=== PATIENT | female | born 1955 | race Caucasian/White ===

== ENCOUNTER → 2017-06-05 | Outpatient (CLI) | payer OTHER ==
[~2017-06-05] MED LIST: ARIP5TAB9 PO; ASPI81TA2 PO; BRIM15DR8 OU; DIVA500T35 PO; DOCU250C76 PO; FLUT1DIS3 IH; LEVO125 PO; LORA10TA7 PO; TIOT185 IH; XALA2.5OS OU
== END | disposition home or self-care (01) ==
LOC: RADPV 14:44
PROVIDERS: ATTEND Internal Medicine Critical Care Medicine
DX: J44.9 Chronic obstructive pulmonary disease, unspecified (principal)
CPT/HCPCS: 71020

== ENCOUNTER 2017-09-15 16:58 | Inpatient (IN) | payer MEDICARE, MEDICAID ==
[~2017-09-15] VITALS: Ht 152.4 cm; Wt 100.3 kg
[~2017-09-15 16:58] MED LIST changes: +ARIP5TAB8 PO; -ARIP5TAB9 PO; -ASPI81TA2 PO; +ASPI81TA39 PO; +DOCU250C14 PO; -DOCU250C76 PO
[2017-09-15] MEDS ORDERED: QUEtiapine FUMARATE 25 MG TABLET PO PRN (18:45)
[2017-09-15] MEDS ORDERED: LORazepam 1 MG TABLET PO PRN (18:45)
[2017-09-15 19:01] VITALS: BP 118/65
[2017-09-15 20:14] VITALS: BP 122/63
[2017-09-15] MEDS: CloNIDine HCL 0.1 MG TABLET PO SCH (20:15)
[2017-09-15] MEDS: QUEtiapine FUMARATE 100 MG TABLET PO SCH (20:15)
[2017-09-15] MEDS ORDERED: INSULIN ASPART 100 UNITS/ML SQ PRN (21:15)
[2017-09-15] MEDS ORDERED: IPRATROPIUM BROMIDE 0.5 MG/2.5 ML NEB SOLUTION NEB PRN (21:15)
[2017-09-15] MEDS ORDERED: ALBUTEROL SULFATE HFA 90 MCG/PUFF 8 GM INHALER IH PRN (21:15)
[2017-09-15] MEDS ORDERED: DENTURE ADHESIVE 68 GM CREAM DT PRN (21:15)
[2017-09-15] MEDS ORDERED: GLUCAGON,HUMAN RECOMBINANT 1 MG VIAL IM PRN (21:15)
[2017-09-15] MEDS ORDERED: -PHARMACY VACCINE NOTE- MISC ONE ×2 (22:15)
[2017-09-16 00:11] LABS: GLUCOSE,POINT OF CARE 139 MG/DL (70-110)
[2017-09-16 01:55] VITALS: BP 122/68
[2017-09-16] MEDS: ZOLPIDEM TARTRATE 5 MG TABLET PO PRN (02:07)
[2017-09-16 06:03] LABS: GLUCOSE,POINT OF CARE 80 MG/DL (70-110)
[2017-09-16] MEDS: LEVOTHYROXINE SODIUM 137 MCG TABLET PO SCH (06:35)
[2017-09-16 07:54] LABS: BASOPHILS % (AUTO) 0.3 % (0.0-2.0); EOSINOPHILS % (AUTO) 1.1 % (1.0-6.0); HEMATOCRIT 38.6 % (36-46); LYMPHOCYTES # (AUTO) 2.3 K/uL (1.0-4.8); LYMPHOCYTES % (AUTO) 38.6 % (22.0-44.0); MEAN CORPUSCULAR HEMOGLOBIN 32.1 pg (26.0-34.0); MEAN CORPUSCULAR HGB CONC 33.6 G/dL (31.0-37.0); MEAN CORPUSCULAR VOLUME 95 fL (80-100); MONOCYTES # (AUTO) 0.5 K/uL (0.1-1.0); NEUTROPHILS # (AUTO) 3.1 K/uL (1.8-7.7); PLATELET COUNT (AUTO) 285 K/uL (150-450); RED BLOOD CELL COUNT(AUTO) 4.05 MIL/uL (4.00-5.20); RED CELL DISTRIBUTION WIDTH 14.8 % (11.5-14.5)
[2017-09-16 08:03] VITALS: BP 117/58
[2017-09-16 08:04] LABS: HEMOGLOBIN A1C 5.8 % (4.5-6.2)
[2017-09-16 08:10] VITALS: BP 118/62
[2017-09-16] MEDS: FLUTICASONE/VILANTEROL 100-25 MCG/INH INHALER [14] IH SCH (08:11)
[2017-09-16] MEDS: CloNIDine HCL 0.1 MG TABLET PO SCH ×2 (08:12→20:36)
[2017-09-16] MEDS: FLUTICASONE PROPIONATE 50 MCG/SPRAY 16 GM NASAL SPRAY NASAL SCH ×2 (08:12→16:44)
[2017-09-16] MEDS: ASPIRIN 81 MG CHEWABLE TABLET PO SCH (08:13)
[2017-09-16] MEDS: DOCUSATE SODIUM 250 MG CAPSULE PO SCH ×2 (08:13→16:45)
[2017-09-16] MEDS: QUEtiapine FUMARATE 25 MG TABLET PO SCH ×2 (08:13→16:45)
[2017-09-16] MEDS: LOSARTAN POTASSIUM 25 MG TABLET PO SCH (08:13)
[2017-09-16 08:30] LABS: ALANINE AMINOTRANSFERASE 18 U/L (12-78); ALBUMIN 3.3 g/dL (3.4-5.0); ANION GAP 3 mmol/L (8-16); ASPARTATE AMINOTRANSFERASE 15 U/L (15-37); BILIRUBIN,TOTAL 0.3 mg/dL (0.1-1.0); CALCIUM, TOTAL 9.4 mg/dL (8.8-10.5); CARBON DIOXIDE 33 mmol/L (22-29); CHLORIDE 99 mmol/L (98-107); CHOL/HDL RATIO 2.8 (3.9-5.7); CREATININE 0.89 mg/dL (0.60-1.30); GLOMERULAR FILTR. RATE CALC > 60 mL/min (>60); SODIUM SERUM 135 mmol/L (136-145); THYROID STIMULATING HORMONE 24.15 uIU/mL (0.36-3.74); TOTAL PROTEIN, SERUM 7.1 g/dL (6.4-8.2); UREA NITROGEN, BLOOD 13 mg/dL (7-18)
[2017-09-16] MEDS: TIOTROPIUM BROMIDE 18 MCG/INH HANDIHALER [5] IH SCH (11:22)
[2017-09-16] MEDS: BRIMONIDINE TARTRATE 0.2% 5 ML OPHTHALMIC SOLUTION OU SCH ×3 (11:22→16:45)
[2017-09-16 16:00] VITALS: BP 115/62
[2017-09-16 20:33] VITALS: BP 115/61
[2017-09-16] MEDS: LATANOPROST 0.005% 2.5 ML OPHTHALMIC SOLUTION OU SCH (20:35)
[2017-09-16] MEDS: OXcarbazepine 300 MG TABLET PO SCH (20:36)
[2017-09-16] MEDS: QUEtiapine FUMARATE 100 MG TABLET PO SCH (20:36)
[2017-09-17] MEDS ORDERED: ACETAMINOPHEN 325 MG TABLET PO PRN (01:45)
[2017-09-17] MEDS: ZOLPIDEM TARTRATE 5 MG TABLET PO PRN (02:08)
[2017-09-17] MEDS: IBUPROFEN 600 MG TABLET PO PRN ×2 (02:08→18:57)
[2017-09-17 02:33] VITALS: BP 107/61
[2017-09-17 06:18] LABS: GLUCOSE,POINT OF CARE 88 MG/DL (70-110)
[2017-09-17] MEDS: LEVOTHYROXINE SODIUM 137 MCG TABLET PO SCH (06:42)
[2017-09-17 08:15] VITALS: BP 116/64
[2017-09-17] MEDS: LOSARTAN POTASSIUM 25 MG TABLET PO SCH (08:26)
[2017-09-17] MEDS: CloNIDine HCL 0.1 MG TABLET PO SCH ×2 (08:26→20:28)
[2017-09-17] MEDS: ASPIRIN 81 MG CHEWABLE TABLET PO SCH (08:26)
[2017-09-17] MEDS: QUEtiapine FUMARATE 25 MG TABLET PO SCH ×2 (08:27→16:40)
[2017-09-17] MEDS: FLUTICASONE PROPIONATE 50 MCG/SPRAY 16 GM NASAL SPRAY NASAL SCH (08:28)
[2017-09-17] MEDS: FLUTICASONE/VILANTEROL 100-25 MCG/INH INHALER [14] IH SCH (08:28)
[2017-09-17] MEDS: TIOTROPIUM BROMIDE 18 MCG/INH HANDIHALER [5] IH SCH (08:28)
[2017-09-17] MEDS: BRIMONIDINE TARTRATE 0.2% 5 ML OPHTHALMIC SOLUTION OU SCH ×3 (08:29→16:41)
[2017-09-17] MEDS: DOCUSATE SODIUM 250 MG CAPSULE PO SCH (08:41)
[2017-09-17 16:10] VITALS: BP 116/74
[2017-09-17 18:51] VITALS: BP 117/74
[2017-09-17 20:27] VITALS: BP 114/64
[2017-09-17] MEDS: QUEtiapine FUMARATE 100 MG TABLET PO SCH (20:28)
[2017-09-17] MEDS: OXcarbazepine 300 MG TABLET PO SCH (20:28)
[2017-09-17] MEDS: LATANOPROST 0.005% 2.5 ML OPHTHALMIC SOLUTION OU SCH (20:28)
[2017-09-18] MEDS: ZOLPIDEM TARTRATE 5 MG TABLET PO PRN (00:54)
[2017-09-18] MEDS: IBUPROFEN 600 MG TABLET PO PRN ×2 (00:55→21:22)
[2017-09-18 01:45] VITALS: BP 119/64
[2017-09-18] MEDS: LEVOTHYROXINE SODIUM 137 MCG TABLET PO SCH (06:40)
[2017-09-18 06:44] LABS: GLUCOSE,POINT OF CARE 71 MG/DL (70-110)
[2017-09-18] MEDS: DOCUSATE SODIUM 250 MG CAPSULE PO SCH ×2 (08:21→08:54)
[2017-09-18] MEDS: ASPIRIN 81 MG CHEWABLE TABLET PO SCH (08:23)
[2017-09-18] MEDS: LOSARTAN POTASSIUM 25 MG TABLET PO SCH (08:23)
[2017-09-18] MEDS: CloNIDine HCL 0.1 MG TABLET PO SCH ×2 (08:24→20:25)
[2017-09-18] MEDS: QUEtiapine FUMARATE 25 MG TABLET PO SCH ×2 (08:24→17:04)
[2017-09-18] MEDS: TIOTROPIUM BROMIDE 18 MCG/INH HANDIHALER [5] IH SCH (08:25)
[2017-09-18] MEDS: FLUTICASONE/VILANTEROL 100-25 MCG/INH INHALER [14] IH SCH (08:25)
[2017-09-18] MEDS: BRIMONIDINE TARTRATE 0.2% 5 ML OPHTHALMIC SOLUTION OU SCH ×3 (08:26→17:04)
[2017-09-18] MEDS: FLUTICASONE PROPIONATE 50 MCG/SPRAY 16 GM NASAL SPRAY NASAL SCH (08:26)
[2017-09-18 08:32] VITALS: BP 122/83
[2017-09-18 16:16] VITALS: BP 123/66
[2017-09-18] MEDS: OXcarbazepine 300 MG TABLET PO SCH (20:11)
[2017-09-18] MEDS: QUEtiapine FUMARATE 100 MG TABLET PO SCH (20:11)
[2017-09-18] MEDS: LATANOPROST 0.005% 2.5 ML OPHTHALMIC SOLUTION OU SCH (20:13)
[2017-09-18 20:25] VITALS: BP 108/53
[2017-09-19 06:05] VITALS: BP 115/65
[2017-09-19 06:44] LABS: GLUCOSE,POINT OF CARE 85 MG/DL (70-110)
[2017-09-19] MEDS: LEVOTHYROXINE SODIUM 137 MCG TABLET PO SCH (07:06)
[2017-09-19 09:10] VITALS: BP 105/70
[2017-09-19 09:11] VITALS: BP 118/62
[2017-09-19] MEDS: LOSARTAN POTASSIUM 25 MG TABLET PO SCH (09:11)
[2017-09-19] MEDS: QUEtiapine FUMARATE 25 MG TABLET PO SCH ×2 (09:11→16:59)
[2017-09-19] MEDS: ASPIRIN 81 MG CHEWABLE TABLET PO SCH (09:11)
[2017-09-19] MEDS: DOCUSATE SODIUM 250 MG CAPSULE PO SCH (09:11)
[2017-09-19] MEDS: CloNIDine HCL 0.1 MG TABLET PO SCH ×2 (09:11→21:11)
[2017-09-19] MEDS: FLUTICASONE/VILANTEROL 100-25 MCG/INH INHALER [14] IH SCH (09:12)
[2017-09-19] MEDS: FLUTICASONE PROPIONATE 50 MCG/SPRAY 16 GM NASAL SPRAY NASAL SCH (09:12)
[2017-09-19] MEDS: BRIMONIDINE TARTRATE 0.2% 5 ML OPHTHALMIC SOLUTION OU SCH ×3 (09:13→17:13)
[2017-09-19] MEDS: TIOTROPIUM BROMIDE 18 MCG/INH HANDIHALER [5] IH SCH (09:13)
[2017-09-19 16:12] VITALS: BP 108/80
[2017-09-19] MEDS: OXcarbazepine 300 MG TABLET PO SCH (21:10)
[2017-09-19] MEDS: LATANOPROST 0.005% 2.5 ML OPHTHALMIC SOLUTION OU SCH (21:10)
[2017-09-19] MEDS: QUEtiapine FUMARATE 100 MG TABLET PO SCH (21:11)
[2017-09-20 02:54] VITALS: BP 101/60
[2017-09-20] MEDS: LEVOTHYROXINE SODIUM 137 MCG TABLET PO SCH (06:42)
[2017-09-20 06:48] LABS: GLUCOSE COMMENT 1 Repeated; GLUCOSE,POINT OF CARE 84 MG/DL (70-110)
[2017-09-20 08:34] VITALS: BP 119/66
[2017-09-20] MEDS: ASPIRIN 81 MG CHEWABLE TABLET PO SCH (09:34)
[2017-09-20] MEDS: CloNIDine HCL 0.1 MG TABLET PO SCH ×2 (09:35→20:41)
[2017-09-20] MEDS: LOSARTAN POTASSIUM 25 MG TABLET PO SCH (09:35)
[2017-09-20] MEDS: DOCUSATE SODIUM 250 MG CAPSULE PO SCH (09:35)
[2017-09-20] MEDS: TIOTROPIUM BROMIDE 18 MCG/INH HANDIHALER [5] IH SCH (09:36)
[2017-09-20] MEDS: FLUTICASONE/VILANTEROL 100-25 MCG/INH INHALER [14] IH SCH (09:36)
[2017-09-20] MEDS: FLUTICASONE PROPIONATE 50 MCG/SPRAY 16 GM NASAL SPRAY NASAL SCH (09:37)
[2017-09-20] MEDS: BRIMONIDINE TARTRATE 0.2% 5 ML OPHTHALMIC SOLUTION OU SCH ×3 (09:39→16:49)
[2017-09-20] MEDS: QUEtiapine FUMARATE 25 MG TABLET PO SCH ×2 (09:42→16:49)
[2017-09-20 16:14] VITALS: BP 118/65
[2017-09-20] MEDS: QUEtiapine FUMARATE 100 MG TABLET PO SCH (20:41)
[2017-09-20] MEDS: LATANOPROST 0.005% 2.5 ML OPHTHALMIC SOLUTION OU SCH (20:41)
[2017-09-20] MEDS: OXcarbazepine 300 MG TABLET PO SCH (20:41)
[2017-09-20] MEDS: ZOLPIDEM TARTRATE 5 MG TABLET PO PRN (22:33)
[2017-09-21 01:22] VITALS: BP 105/60
[2017-09-21] MEDS: LEVOTHYROXINE SODIUM 137 MCG TABLET PO SCH (06:26)
[2017-09-21] MEDS: IBUPROFEN 600 MG TABLET PO PRN (06:40)
[2017-09-21 07:03] LABS: GLUCOSE,POINT OF CARE 86 MG/DL (70-110)
[2017-09-21] MEDS ORDERED: CLON-570 PO (08:22)
[2017-09-21] MEDS ORDERED: QUET100T PO (08:22)
[2017-09-21] MEDS ORDERED: OXCA300T46 PO (08:22)
[2017-09-21] MEDS ORDERED: FLUT1AER IH (08:22)
[2017-09-21] MEDS ORDERED: BRIM15OS OU (08:22)
[2017-09-21] MEDS ORDERED: FLUT16H NASAL (08:22)
[2017-09-21] MEDS ORDERED: ALBU8HFA4 IH (08:22)
[2017-09-21] MEDS ORDERED: LOSA25TA2 PO (08:22)
[2017-09-21 08:34] VITALS: BP 125/68
[2017-09-21] MEDS: CloNIDine HCL 0.1 MG TABLET PO SCH ×2 (08:35→20:40)
[2017-09-21] MEDS: LOSARTAN POTASSIUM 25 MG TABLET PO SCH (08:35)
[2017-09-21] MEDS ORDERED: XALA2.5OS OU (08:35)
[2017-09-21] MEDS: ASPIRIN 81 MG CHEWABLE TABLET PO SCH (08:36)
[2017-09-21] MEDS: DOCUSATE SODIUM 250 MG CAPSULE PO SCH (08:36)
[2017-09-21] MEDS: QUEtiapine FUMARATE 25 MG TABLET PO SCH ×2 (08:36→16:38)
[2017-09-21] MEDS: FLUTICASONE PROPIONATE 50 MCG/SPRAY 16 GM NASAL SPRAY NASAL SCH (08:37)
[2017-09-21] MEDS: FLUTICASONE/VILANTEROL 100-25 MCG/INH INHALER [14] IH SCH (08:37)
[2017-09-21] MEDS: BRIMONIDINE TARTRATE 0.2% 5 ML OPHTHALMIC SOLUTION OU SCH ×3 (08:39→16:38)
[2017-09-21] MEDS ORDERED: LEVO137T24 PO (12:48)
[2017-09-21] MEDS: TIOTROPIUM BROMIDE 18 MCG/INH HANDIHALER [5] IH SCH (12:52)
[2017-09-21] MEDS ORDERED: QUET25TA PO (15:05)
[2017-09-21] MEDS ORDERED: OXCA150T3 PO (15:05)
[2017-09-21] MEDS ORDERED: QUET50TA PO ×2 (15:05→15:13)
[2017-09-21 16:18] VITALS: BP 124/78
[2017-09-21] MEDS: LATANOPROST 0.005% 2.5 ML OPHTHALMIC SOLUTION OU SCH (20:39)
[2017-09-21] MEDS: QUEtiapine FUMARATE 100 MG TABLET PO SCH (20:39)
[2017-09-21 20:40] VITALS: BP 122/71
[2017-09-21] MEDS ORDERED: OXcarbazepine 300 MG TABLET PO SCH (21:00)
[2017-09-22 06:14] VITALS: BP 118/63
[2017-09-22 06:33] LABS: GLUCOSE,POINT OF CARE 104 MG/DL (70-110)
[2017-09-22] MEDS: LEVOTHYROXINE SODIUM 137 MCG TABLET PO SCH (06:43)
[2017-09-22 08:36] VITALS: BP 148/60
[2017-09-22] MEDS: CloNIDine HCL 0.1 MG TABLET PO SCH (08:36)
[2017-09-22] MEDS: QUEtiapine FUMARATE 25 MG TABLET PO SCH (08:36)
[2017-09-22] MEDS: DOCUSATE SODIUM 250 MG CAPSULE PO SCH (08:36)
[2017-09-22] MEDS: ASPIRIN 81 MG CHEWABLE TABLET PO SCH (08:37)
[2017-09-22] MEDS: TIOTROPIUM BROMIDE 18 MCG/INH HANDIHALER [5] IH SCH (08:37)
[2017-09-22] MEDS: FLUTICASONE PROPIONATE 50 MCG/SPRAY 16 GM NASAL SPRAY NASAL SCH (08:37)
[2017-09-22] MEDS: LOSARTAN POTASSIUM 25 MG TABLET PO SCH (08:37)
[2017-09-22] MEDS: FLUTICASONE/VILANTEROL 100-25 MCG/INH INHALER [14] IH SCH (08:38)
[2017-09-22] MEDS: BRIMONIDINE TARTRATE 0.2% 5 ML OPHTHALMIC SOLUTION OU SCH (08:38)
[2017-10-30] MEDS ORDERED: DONE10TA8 PO (10:50)
== END 2017-09-22 12:17 | disposition home or self-care (01) | DRG 885 ==
LOC: B2X 18:39
PROVIDERS: ADMIT Psychiatry & Neurology Psychiatry; ATTEND Psychiatry & Neurology Psychiatry
DX: F20.0 Paranoid schizophrenia (principal); E11.9 Type 2 diabetes mellitus without complications; R45.851 Suicidal ideations; W19.XXXA Unspecified fall, initial encounter; E03.9 Hypothyroidism, unspecified; E78.5 Hyperlipidemia, unspecified; F17.200 Nicotine dependence, unspecified, uncomplicated; I10 Essential (primary) hypertension; J30.9 Allergic rhinitis, unspecified; J44.9 Chronic obstructive pulmonary disease, unspecified; K59.00 Constipation, unspecified; Z79.4 Long term (current) use of insulin; Z91.19 Patient's noncompliance with other medical treatment and regimen; Z96.651 Presence of right artificial knee joint
CPT/HCPCS: 82962; 83036; 84439; 84443

== ENCOUNTER 2018-02-02 19:26 | Emergency (ER) | payer OTHER ==
[~2018-02-02] VITALS: Ht 162.6 cm; Wt 77.3 kg
[~2018-02-02 19:26] MED LIST changes: +ALBU8HFA4 IH; -ARIP5TAB8 PO; -BRIM15DR8 OU; +BRIM15OS OU; +CLON-570 PO; -DIVA500T35 PO; +DONE10TA8 PO; +FLUT16H NASAL; +FLUT1AER IH; -FLUT1DIS3 IH; -LEVO125 PO; +LEVO137T24 PO; -LORA10TA7 PO; +LOSA25TA2 PO; +OXCA150T3 PO; +QUET25TA PO; +QUET50TA PO
[2018-02-02] MEDS ORDERED: METOCLOPRAMIDE HCL 5 MG/ML 2 ML VIAL IVP ONE (22:15)
[2018-02-02] MEDS ORDERED: FentaNYL CITRATE-PF 100 MCG/2 ML VIAL IVP ONE (22:15)
[2018-02-02 22:25] LABS: EOSINOPHILS % (AUTO) 1.1 % (1.0-6.0); HEMATOCRIT 34.5 % (36-46); HEMOGLOBIN 11.6 g/dL (12.0-16.0); LYMPHOCYTES # (AUTO) 2.3 K/uL (1.0-4.8); LYMPHOCYTES % (AUTO) 23.2 % (22.0-44.0); MEAN CORPUSCULAR HEMOGLOBIN 28.9 pg (26.0-34.0); MEAN CORPUSCULAR HGB CONC 33.5 G/dL (31.0-37.0); MEAN CORPUSCULAR VOLUME 86 fL (80-100); MONOCYTES # (AUTO) 0.7 K/uL (0.1-1.0); MONOCYTES % (AUTO) 6.7 % (2.0-9.0); NEUTROPHILS # (AUTO) 6.7 K/uL (1.8-7.7); PLATELET COUNT (AUTO) 329 K/uL (150-450); RED CELL DISTRIBUTION WIDTH 15.3 % (11.5-14.5)
[2018-02-02 22:35] LABS: CALCIUM, TOTAL 9.3 mg/dL (8.8-10.5); CREATININE 0.98 mg/dL (0.60-1.30); POTASSIUM 4.4 mmol/L (3.5-5.1)
[2018-02-02 22:36] LABS: PROTHROMBIN TIME 10.2 SEC (9.4-11.6)
[2018-02-02 22:41] LABS: ALBUMIN 3.4 g/dL (3.4-5.0); BILIRUBIN,TOTAL 0.2 mg/dL (0.1-1.0); TOTAL PROTEIN, SERUM 7.1 g/dL (6.4-8.2)
[2018-02-03 00:31] VITALS: BP 131/74
[2018-02-05] MEDS ORDERED: RISP.5 PO (08:49)
[2018-02-05] MEDS ORDERED: RISP0.5T61 PO (08:49)
== END 2018-02-03 02:09 | disposition home or self-care (01) ==
LOC: EMS 19:28
DX: S13.4XXA Sprain of ligaments of cervical spine, initial encounter (principal); S00.03XA Contusion of scalp, initial encounter; F20.0 Paranoid schizophrenia; R45.851 Suicidal ideations; E03.9 Hypothyroidism, unspecified; J44.9 Chronic obstructive pulmonary disease, unspecified; F17.210 Nicotine dependence, cigarettes, uncomplicated; W18.39XA Other fall on same level, initial encounter; Y93.89 Activity, other specified; Y92.89 Other specified places as the place of occurrence of the external cause; Y99.8 Other external cause status
CPT/HCPCS: 36415; 70450; 72070; 72100; 72125; 80053; 85025; 85610; 85730; 96374; 96375; 99285; J2765; J3010

== ENCOUNTER 2018-07-02 17:33 | Inpatient (IN) | payer MEDICARE, MEDICAID ==
[~2018-07-02] VITALS: Ht 160 cm; Wt 90.3 kg
[~2018-07-02 17:33] MED LIST changes: -ALBU8HFA4 IH; -BRIM15OS OU; -CLON-570 PO; -DONE10TA8 PO; -FLUT16H NASAL; -FLUT1AER IH; -OXCA150T3 PO; -QUET25TA PO; -QUET50TA PO; +RISP.5 PO; +RISP0.5T61 PO; -TIOT185 IH; -XALA2.5OS OU
[2018-07-02 18:01] LABS: EOSINOPHILS % (AUTO) 0.7 % (1.0-6.0); HEMATOCRIT 38.5 % (36-46); HEMOGLOBIN 12.8 g/dL (12.0-16.0); LYMPHOCYTES % (AUTO) 24.5 % (22.0-44.0); MEAN CORPUSCULAR HEMOGLOBIN 29.6 pg (26.0-34.0); MEAN CORPUSCULAR HGB CONC 33.3 G/dL (31.0-37.0); MEAN CORPUSCULAR VOLUME 89 fL (80-100); MONOCYTES # (AUTO) 0.5 K/uL (0.1-1.0); MONOCYTES % (AUTO) 6.5 % (2.0-9.0); NEUTROPHILS # (AUTO) 5.4 K/uL (1.8-7.7); NEUTROPHILS % (AUTO) 67.3 % (40.0-70.0); PLATELET COUNT (AUTO) 328 K/uL (150-450); RED BLOOD CELL COUNT(AUTO) 4.34 MIL/uL (4.00-5.20); RED CELL DISTRIBUTION WIDTH 15.7 % (11.5-14.5)
[2018-07-02 18:08] LABS: ANION GAP 6 mmol/L (8-16); CALCIUM, TOTAL 9.6 mg/dL (8.8-10.5); CARBON DIOXIDE 30 mmol/L (22-29); CHLORIDE 102 mmol/L (98-107); CREATININE 0.98 mg/dL (0.60-1.30); GLOMERULAR FILTR. RATE CALC 58 mL/min (>60); GLUCOSE,RANDOM 100 mg/dL (70-110); POTASSIUM 4.9 mmol/L (3.5-5.1); SODIUM SERUM 138 mmol/L (136-145); UREA NITROGEN, BLOOD 22 mg/dL (7-18)
[2018-07-02 18:15] LABS: ALANINE AMINOTRANSFERASE 21 U/L (12-78); ALBUMIN 3.8 g/dL (3.4-5.0); ALKALINE PHOSPHATASE 82 U/L (46-116); ASPARTATE AMINOTRANSFERASE 15 U/L (15-37); BILIRUBIN,TOTAL 0.3 mg/dL (0.1-1.0); TOTAL PROTEIN, SERUM 7.8 g/dL (6.4-8.2)
[2018-07-02 19:33] LABS: AMPHET/METH SCREEN,URINE NEGATIVE (NEGATIVE); BARBITURATE SCREEN, URINE NEGATIVE (NEGATIVE); BENZODIAZEPINES SCREEN,URINE NEGATIVE (NEGATIVE); CANNABINOID SCREEN,URINE NEGATIVE (NEGATIVE); COCAINE SCREEN,URINE NEGATIVE (NEGATIVE); METHADONE SCREEN, URINE NEGATIVE (NEGATIVE); OPIATE SCREEN,URINE NEGATIVE (NEGATIVE)
[2018-07-02 19:34] LABS: PHENCYCLIDINE SCREEN,URINE NEGATIVE (NEGATIVE)
[2018-07-02] MEDS ORDERED: ChlorproMAZINE HCL 25 MG TABLET PO PRN ×2 (21:00→21:45)
[2018-07-02 21:42] LABS: APPEARANCE,URINE CLEAR (CLEAR); BILIRUBIN,URINE NEGATIVE (NEGATIVE); GLUCOSE, URINE (UA) NEGATIVE (NEGATIVE); KETONES,URINE NEGATIVE (NEGATIVE); LEUKOCYTE ESTERASE ,URINE NEGATIVE (NEGATIVE); NITRATE,URINE NEGATIVE (NEGATIVE); OCCULT BLOOD,URINE NEGATIVE (NEGATIVE); PROTEIN,URINE NEGATIVE (NEGATIVE); UROBILINOGEN,URINE 0.2 mg/dL (<=1.0)
[2018-07-02] MEDS: ZOLPIDEM TARTRATE 5 MG TABLET PO PRN (23:52)
[2018-07-02] MEDS: LORazepam 1 MG TABLET PO PRN (23:53)
[2018-07-03 00:18] VITALS: BP 126/59
[2018-07-03 05:49] LABS: GLUCOMETER DEV NAME(LOC) 3EI C; GLUCOSE,POINT OF CARE 88 MG/DL (70-110)
[2018-07-03 06:54] LABS: BASOPHILS % (AUTO) 1.1 % (0.0-2.0); EOSINOPHILS % (AUTO) 1.1 % (1.0-6.0); HEMATOCRIT 39.5 % (36-46); HEMOGLOBIN 13.3 g/dL (12.0-16.0); LYMPHOCYTES # (AUTO) 3.1 K/uL (1.0-4.8); LYMPHOCYTES % (AUTO) 32.3 % (22.0-44.0); MEAN CORPUSCULAR HEMOGLOBIN 29.8 pg (26.0-34.0); MEAN CORPUSCULAR HGB CONC 33.8 G/dL (31.0-37.0); MEAN CORPUSCULAR VOLUME 88 fL (80-100); MONOCYTES # (AUTO) 0.6 K/uL (0.1-1.0); MONOCYTES % (AUTO) 6.5 % (2.0-9.0); NEUTROPHILS # (AUTO) 5.7 K/uL (1.8-7.7); PLATELET COUNT (AUTO) 351 K/uL (150-450); RED BLOOD CELL COUNT(AUTO) 4.48 MIL/uL (4.00-5.20); RED CELL DISTRIBUTION WIDTH 15.6 % (11.5-14.5)
[2018-07-03 07:06] LABS: HEMOGLOBIN A1C 5.7 % (4.5-6.2)
[2018-07-03 07:41] LABS: ALBUMIN 3.8 g/dL (3.4-5.0); BILIRUBIN,TOTAL 0.5 mg/dL (0.1-1.0); CHOL/HDL RATIO 2.7 (3.9-5.7); CREATININE 0.97 mg/dL (0.60-1.30); FREE T4 (FREE THYROXINE) 0.83 ng/dL (0.76-1.46); POTASSIUM 4.2 mmol/L (3.5-5.1); THYROID STIMULATING HORMONE 9.32 uIU/mL (0.36-3.74); TOTAL PROTEIN, SERUM 7.9 g/dL (6.4-8.2)
[2018-07-03 08:05] VITALS: BP 126/75
[2018-07-03] MEDS: OXcarbazepine 300 MG TABLET PO SCH ×2 (08:10→17:53)
[2018-07-03] MEDS: HALOPERIDOL 5 MG TABLET PO SCH ×2 (08:10→17:53)
[2018-07-03] MEDS: ChlorproMAZINE HCL 100 MG TABLET PO PRN (13:12)
[2018-07-03 18:00] VITALS: BP 122/69
[2018-07-04] MEDS: OXcarbazepine 300 MG TABLET PO SCH ×2 (08:25→17:52)
[2018-07-04] MEDS: HALOPERIDOL 5 MG TABLET PO SCH ×2 (08:25→17:53)
[2018-07-04 08:55] VITALS: BP 150/59
[2018-07-04] MEDS: LORazepam 1 MG TABLET PO PRN (14:14)
[2018-07-04 16:18] VITALS: BP 141/65
[2018-07-05] MEDS: ChlorproMAZINE HCL 100 MG TABLET PO PRN ×3 (02:07→23:46)
[2018-07-05 02:11] VITALS: BP 139/58
[2018-07-05 08:10] VITALS: BP 108/69
[2018-07-05] MEDS: OXcarbazepine 300 MG TABLET PO SCH ×2 (08:18→18:32)
[2018-07-05] MEDS: HALOPERIDOL 5 MG TABLET PO SCH ×2 (08:18→18:32)
[2018-07-05] MEDS: LOSARTAN POTASSIUM 25 MG TABLET PO SCH (14:10)
[2018-07-05 16:30] VITALS: BP 135/72
[2018-07-06 00:12] VITALS: BP 103/53
[2018-07-06] MEDS: ChlorproMAZINE HCL 100 MG TABLET PO PRN ×2 (06:05→15:00)
[2018-07-06 06:48] LABS: HEMOGLOBIN A1C 5.7 % (4.5-6.2)
[2018-07-06] MEDS ORDERED: LEVOTHYROXINE SODIUM 137 MCG TABLET PO SCH (07:00)
[2018-07-06 07:11] LABS: FREE T4 (FREE THYROXINE) 0.73 ng/dL (0.76-1.46); THYROID STIMULATING HORMONE 16.78 uIU/mL (0.36-3.74)
[2018-07-06 09:00] VITALS: BP 152/58
[2018-07-06] MEDS ORDERED: [UNRECOGNIZED DRUG - OTHER] PO SCH (09:00)
[2018-07-06] MEDS ORDERED: MISC MED-CONVERTED FROM AMBULATORY (Aspirin 81 MG) PO SCH (09:00)
[2018-07-06] MEDS ORDERED: [UNRECOGNIZED DRUG - OTHER] PO SCH (09:00)
[2018-07-06] MEDS: OXcarbazepine 300 MG TABLET PO SCH ×2 (09:39→17:10)
[2018-07-06] MEDS: DOCUSATE SODIUM 250 MG CAPSULE PO SCH (09:39)
[2018-07-06] MEDS: LOSARTAN POTASSIUM 25 MG TABLET PO SCH (09:39)
[2018-07-06] MEDS: ASPIRIN 81 MG EC TABLET PO SCH (09:39)
[2018-07-06] MEDS: HALOPERIDOL 5 MG TABLET PO SCH ×2 (09:39→17:10)
[2018-07-06 17:00] VITALS: BP 105/57
[2018-07-07] MEDS: ChlorproMAZINE HCL 100 MG TABLET PO PRN ×2 (01:40→22:56)
[2018-07-07 01:44] VITALS: BP 103/52
[2018-07-07] MEDS: LEVOTHYROXINE SODIUM 150 MCG TABLET PO SCH (06:44)
[2018-07-07] MEDS: HALOPERIDOL 5 MG TABLET PO SCH ×2 (08:45→16:20)
[2018-07-07] MEDS: DOCUSATE SODIUM 250 MG CAPSULE PO SCH (08:45)
[2018-07-07] MEDS: ASPIRIN 81 MG EC TABLET PO SCH (08:47)
[2018-07-07] MEDS: LOSARTAN POTASSIUM 25 MG TABLET PO SCH (08:47)
[2018-07-07] MEDS ORDERED: GuaiFENesin/D-METHORPHAN [SUGAR-FREE] 200-20MG/10 ML SYRUP UDCUP PO PRN (11:45)
[2018-07-07] MEDS ORDERED: LOPERAMIDE HCL 2 MG CAPSULE PO PRN (11:45)
[2018-07-07] MEDS ORDERED: PROMETHAZINE HCL 25 MG TABLET PO PRN (11:45)
[2018-07-07] MEDS ORDERED: MAG HYDROX/AL HYDROX/SIMETH ES 30 ML SUSPENSION UDCUP PO PRN (11:45)
[2018-07-07] MEDS ORDERED: ACETAMINOPHEN 325 MG TABLET PO PRN (11:45)
[2018-07-07] MEDS ORDERED: MAGNESIUM HYDROXIDE SUSPENSION 30 ML UDCUP PO PRN (11:45)
[2018-07-07 14:52] VITALS: BP 132/77
[2018-07-07 16:15] VITALS: BP 134/64
[2018-07-07] MEDS: OXcarbazepine 300 MG TABLET PO SCH (16:19)
[2018-07-07] MEDS: LORazepam 1 MG TABLET PO PRN (16:19)
[2018-07-07] MEDS: THIAMINE HCL 100 MG TABLET PO SCH (16:20)
[2018-07-07] MEDS: ZOLPIDEM TARTRATE 5 MG TABLET PO PRN (22:02)
[2018-07-08] VITALS: BP 115/64
[2018-07-08] MEDS: HydrOXYzine PAMOATE 50 MG CAPSULE PO PRN (00:18)
[2018-07-08] MEDS: LEVOTHYROXINE SODIUM 150 MCG TABLET PO SCH (07:15)
[2018-07-08] MEDS: FOLIC ACID 1 MG TABLET PO SCH (09:00)
[2018-07-08] MEDS: DOCUSATE SODIUM 250 MG CAPSULE PO SCH (09:00)
[2018-07-08] MEDS: THIAMINE HCL 100 MG TABLET PO SCH ×2 (09:00→16:42)
[2018-07-08] MEDS: LOSARTAN POTASSIUM 25 MG TABLET PO SCH (09:01)
[2018-07-08] MEDS: MULTIVITAMINS WITH MINERALS, THERAPEUTIC TABLET PO SCH (09:01)
[2018-07-08] MEDS: OXcarbazepine 300 MG TABLET PO SCH ×2 (09:01→16:42)
[2018-07-08] MEDS: HALOPERIDOL 5 MG TABLET PO SCH ×2 (09:01→16:42)
[2018-07-08] MEDS: ASPIRIN 81 MG EC TABLET PO SCH (09:02)
[2018-07-08 13:26] VITALS: BP 128/69
[2018-07-08 16:53] LABS: GLUCOMETER DEV NAME(LOC) 3EI C; GLUCOSE,POINT OF CARE 84 MG/DL (70-110)
[2018-07-08 18:11] VITALS: BP 112/68
[2018-07-09] MEDS: LEVOTHYROXINE SODIUM 150 MCG TABLET PO SCH (06:30)
[2018-07-09] MEDS: OXcarbazepine 300 MG TABLET PO SCH ×2 (08:04→20:22)
[2018-07-09] MEDS: ASPIRIN 81 MG EC TABLET PO SCH (08:04)
[2018-07-09] MEDS: THIAMINE HCL 100 MG TABLET PO SCH ×2 (08:04→16:32)
[2018-07-09] MEDS: LOSARTAN POTASSIUM 25 MG TABLET PO SCH (08:04)
[2018-07-09] MEDS: MULTIVITAMINS WITH MINERALS, THERAPEUTIC TABLET PO SCH (08:04)
[2018-07-09] MEDS: HALOPERIDOL 5 MG TABLET PO SCH ×2 (08:05→16:32)
[2018-07-09] MEDS: FOLIC ACID 1 MG TABLET PO SCH (08:05)
[2018-07-09] MEDS: DOCUSATE SODIUM 250 MG CAPSULE PO SCH (08:09)
[2018-07-09 09:19] VITALS: BP 110/79
[2018-07-09] MEDS: ChlorproMAZINE HCL 100 MG TABLET PO PRN (11:18)
[2018-07-09] MEDS: NYSTATIN 15 GM POWDER BOTTLE TP SCH ×2 (11:23→16:32)
[2018-07-09] MEDS: HydrOXYzine PAMOATE 50 MG CAPSULE PO PRN (13:00)
[2018-07-09 16:12] VITALS: BP 112/61
[2018-07-10 04:48] VITALS: BP 113/55
[2018-07-10] MEDS: LEVOTHYROXINE SODIUM 150 MCG TABLET PO SCH (07:00)
[2018-07-10] MEDS: HALOPERIDOL 5 MG TABLET PO SCH ×2 (08:45→16:21)
[2018-07-10] MEDS: DOCUSATE SODIUM 250 MG CAPSULE PO SCH (08:45)
[2018-07-10] MEDS: MULTIVITAMINS WITH MINERALS, THERAPEUTIC TABLET PO SCH (08:45)
[2018-07-10] MEDS: FOLIC ACID 1 MG TABLET PO SCH (08:46)
[2018-07-10] MEDS: OXcarbazepine 300 MG TABLET PO SCH ×2 (08:46→20:12)
[2018-07-10] MEDS: LOSARTAN POTASSIUM 25 MG TABLET PO SCH (08:46)
[2018-07-10] MEDS: ASPIRIN 81 MG EC TABLET PO SCH (08:46)
[2018-07-10] MEDS: NYSTATIN 15 GM POWDER BOTTLE TP SCH ×2 (08:47→16:21)
[2018-07-10] MEDS: THIAMINE HCL 100 MG TABLET PO SCH ×2 (08:47→16:21)
[2018-07-10 10:08] VITALS: BP 110/52
[2018-07-10] MEDS: ChlorproMAZINE HCL 100 MG TABLET PO PRN (12:17)
[2018-07-10 17:00] VITALS: BP 124/63
[2018-07-10] MEDS: ZOLPIDEM TARTRATE 5 MG TABLET PO PRN (20:12)
[2018-07-11 03:35] VITALS: BP 136/68
[2018-07-11] MEDS: LORazepam 1 MG TABLET PO PRN (03:50)
[2018-07-11] MEDS: LEVOTHYROXINE SODIUM 150 MCG TABLET PO SCH (07:09)
[2018-07-11] MEDS: DOCUSATE SODIUM 250 MG CAPSULE PO SCH (09:00)
[2018-07-11] MEDS: MULTIVITAMINS WITH MINERALS, THERAPEUTIC TABLET PO SCH (09:29)
[2018-07-11] MEDS: THIAMINE HCL 100 MG TABLET PO SCH ×2 (09:29→16:46)
[2018-07-11] MEDS: ASPIRIN 81 MG EC TABLET PO SCH (09:29)
[2018-07-11] MEDS: FOLIC ACID 1 MG TABLET PO SCH (09:29)
[2018-07-11] MEDS: NYSTATIN 15 GM POWDER BOTTLE TP SCH ×2 (09:29→16:45)
[2018-07-11] MEDS: LOSARTAN POTASSIUM 25 MG TABLET PO SCH (09:29)
[2018-07-11] MEDS: OXcarbazepine 300 MG TABLET PO SCH ×2 (09:29→20:21)
[2018-07-11] MEDS: HALOPERIDOL 5 MG TABLET PO SCH ×2 (09:30→16:46)
[2018-07-11 09:31] VITALS: BP 115/69
[2018-07-11] MEDS: ChlorproMAZINE HCL 100 MG TABLET PO PRN ×2 (09:31→14:25)
[2018-07-11 17:00] VITALS: BP 138/77
[2018-07-12 04:47] VITALS: BP 131/68
[2018-07-12] MEDS: LEVOTHYROXINE SODIUM 150 MCG TABLET PO SCH (06:53)
[2018-07-12] MEDS: ASPIRIN 81 MG EC TABLET PO SCH (08:35)
[2018-07-12] MEDS: MULTIVITAMINS WITH MINERALS, THERAPEUTIC TABLET PO SCH (08:35)
[2018-07-12] MEDS: FOLIC ACID 1 MG TABLET PO SCH (08:35)
[2018-07-12] MEDS: LOSARTAN POTASSIUM 25 MG TABLET PO SCH (08:35)
[2018-07-12] MEDS: OXcarbazepine 300 MG TABLET PO SCH (08:35)
[2018-07-12] MEDS: NYSTATIN 15 GM POWDER BOTTLE TP SCH ×2 (08:35→16:31)
[2018-07-12] MEDS: THIAMINE HCL 100 MG TABLET PO SCH ×2 (08:35→16:29)
[2018-07-12] MEDS: DOCUSATE SODIUM 250 MG CAPSULE PO SCH (08:36)
[2018-07-12] MEDS: HALOPERIDOL 5 MG TABLET PO SCH ×2 (08:36→16:28)
[2018-07-12 10:06] VITALS: BP 143/73
[2018-07-12] MEDS ORDERED: HALO5TAB2 PO (15:01)
[2018-07-12] MEDS ORDERED: OXCA300T29 PO ×2 (15:01)
[2018-07-12] MEDS ORDERED: NYST15PO3 TP (15:03)
[2018-07-12] MEDS ORDERED: FOLI1 PO (15:03)
[2018-07-12] MEDS ORDERED: THIA100T67 PO (15:03)
[2018-07-12] MEDS ORDERED: MULT-1239 PO (15:03)
== END 2018-07-12 17:15 | disposition home or self-care (01) | DRG 885 ==
LOC: EMS 17:38 → 3EX 21:00
PROVIDERS: ADMIT Psychiatry & Neurology Psychiatry; ATTEND Psychiatry & Neurology Psychiatry
DX: F20.0 Paranoid schizophrenia (principal); R45.851 Suicidal ideations; F79 Unspecified intellectual disabilities; M19.90 Unspecified osteoarthritis, unspecified site; J44.9 Chronic obstructive pulmonary disease, unspecified; I10 Essential (primary) hypertension; H40.9 Unspecified glaucoma; E11.9 Type 2 diabetes mellitus without complications; E03.9 Hypothyroidism, unspecified; R62.50 Unspecified lack of expected normal physiological development in childhood; D64.9 Anemia, unspecified; Z96.651 Presence of right artificial knee joint; D17.9 Benign lipomatous neoplasm, unspecified; E78.5 Hyperlipidemia, unspecified; K21.9 Gastro-esophageal reflux disease without esophagitis; E66.9 Obesity, unspecified; G47.00 Insomnia, unspecified; K59.00 Constipation, unspecified; Z91.19 Patient's noncompliance with other medical treatment and regimen; Z91.14 Patient's other noncompliance with medication regimen; Z90.710 Acquired absence of both cervix and uterus; Z91.5 Personal history of self-harm; Z87.891 Personal history of nicotine dependence; Z81.0 Family history of intellectual disabilities
CPT/HCPCS: 80173; 83036; 84439; 84443; 99285; G0480

== ENCOUNTER 2019-03-07 14:20 | Inpatient (IN) | payer MEDICARE, MEDICAID ==
[~2019-03-07] VITALS: Ht 160 cm; Wt 102.1 kg
[~2019-03-07 14:20] MED LIST changes: +FOLI1 PO; +HALO5TAB2 PO; -LEVO137T24 PO; +MULT-1239 PO; +NYST15PO3 TP; +OXCA300T29 PO; -RISP.5 PO; -RISP0.5T61 PO; +THIA100T67 PO
[2019-03-07] MEDS ORDERED: MELO-107 PO (16:43)
[2019-03-07] MEDS ORDERED: LEVO137T24 PO (16:43)
[2019-03-07] MEDS ORDERED: CETI10TA59 PO (16:43)
[2019-03-07] MEDS ORDERED: FLUD25I IM (16:43)
[2019-03-07] MEDS ORDERED: RISP.5 PO (16:43)
[2019-03-07] MEDS ORDERED: QUET300T2 PO (16:43)
[2019-03-07] MEDS ORDERED: CLON.2 PO (16:43)
[2019-03-07 17:09] LABS: BASOPHILS % (AUTO) 0.5 % (0.0-2.0); EOSINOPHILS % (AUTO) 1.5 % (1.0-6.0); HEMATOCRIT 38.3 % (36-46); HEMOGLOBIN 12.5 g/dL (12.0-16.0); LYMPHOCYTES # (AUTO) 2.1 K/uL (1.0-4.8); LYMPHOCYTES % (AUTO) 28.2 % (22.0-44.0); MEAN CORPUSCULAR HEMOGLOBIN 29.8 pg (26.0-34.0); MEAN CORPUSCULAR HGB CONC 32.7 G/dL (31.0-37.0); MEAN CORPUSCULAR VOLUME 91 fL (80-100); MONOCYTES # (AUTO) 0.6 K/uL (0.1-1.0); MONOCYTES % (AUTO) 8.4 % (2.0-9.0); NEUTROPHILS # (AUTO) 4.6 K/uL (1.8-7.7); NEUTROPHILS % (AUTO) 61.4 % (40.0-70.0); PLATELET COUNT (AUTO) 329 K/uL (150-450); RED BLOOD CELL COUNT(AUTO) 4.21 MIL/uL (4.00-5.20); RED CELL DISTRIBUTION WIDTH 14.2 % (11.5-14.5)
[2019-03-07 17:43] LABS: ANION GAP 6 mmol/L (8-16); CALCIUM, TOTAL 9.4 mg/dL (8.8-10.5); CARBON DIOXIDE 30 mmol/L (22-29); CHLORIDE 101 mmol/L (98-107); CREATININE 0.84 mg/dL (0.60-1.30); GLOMERULAR FILTR. RATE CALC > 60 mL/min (>60); GLUCOSE,RANDOM 97 mg/dL (70-110); POTASSIUM 4.7 mmol/L (3.5-5.1); SODIUM SERUM 137 mmol/L (136-145); UREA NITROGEN, BLOOD 18 mg/dL (7-18)
[2019-03-07 17:49] LABS: ALANINE AMINOTRANSFERASE 19 U/L (12-78); ALBUMIN 3.6 g/dL (3.4-5.0); ALKALINE PHOSPHATASE 77 U/L (46-116); ASPARTATE AMINOTRANSFERASE 16 U/L (15-37); BILIRUBIN,TOTAL 0.3 mg/dL (0.1-1.0); TOTAL PROTEIN, SERUM 7.3 g/dL (6.4-8.2)
[2019-03-07 17:52] LABS: AMPHET/METH SCREEN,URINE NEGATIVE (NEGATIVE); BARBITURATE SCREEN, URINE NEGATIVE (NEGATIVE); BENZODIAZEPINES SCREEN,URINE NEGATIVE (NEGATIVE); CANNABINOID SCREEN,URINE NEGATIVE (NEGATIVE); COCAINE SCREEN,URINE NEGATIVE (NEGATIVE); METHADONE SCREEN, URINE NEGATIVE (NEGATIVE); OPIATE SCREEN,URINE NEGATIVE (NEGATIVE)
[2019-03-07 17:53] LABS: PHENCYCLIDINE SCREEN,URINE NEGATIVE (NEGATIVE)
[2019-03-07] MEDS: CloNIDine HCL 0.1 MG TABLET PO SCH (21:00)
[2019-03-08 06:15] LABS: CHOL/HDL RATIO 3.4 (3.9-5.7)
[2019-03-08] MEDS: FluPHENAZine HCL 5 MG TABLET PO SCH ×2 (10:26→17:16)
[2019-03-08 17:05] VITALS: BP 142/63
[2019-03-08] MEDS ORDERED: -PHARMACY VACCINE NOTE- MISC ONE (17:45)
[2019-03-08 20:31] VITALS: BP 123/79
[2019-03-08] MEDS: CloNIDine HCL 0.1 MG TABLET PO SCH (20:31)
[2019-03-09] MEDS: LEVOTHYROXINE SODIUM 137 MCG TABLET PO SCH (06:22)
[2019-03-09] MEDS: MULTIVITAMINS WITH MINERALS, THERAPEUTIC TABLET PO SCH (08:31)
[2019-03-09] MEDS: FOLIC ACID 1 MG TABLET PO SCH (08:31)
[2019-03-09] MEDS: FluPHENAZine HCL 5 MG TABLET PO SCH ×2 (08:31→16:31)
[2019-03-09] MEDS: MELOXICAM 7.5 MG TABLET PO SCH (08:31)
[2019-03-09] MEDS: ASPIRIN 81 MG CHEWABLE TABLET PO SCH (08:31)
[2019-03-09] MEDS: CETIRIZINE HCL 10 MG TABLET PO SCH (08:31)
[2019-03-09] MEDS: LOSARTAN POTASSIUM 25 MG TABLET PO SCH (08:31)
[2019-03-09] MEDS: NYSTATIN 15 GM POWDER BOTTLE TP SCH ×2 (08:33→16:31)
[2019-03-09 08:39] LABS: FREE T4 (FREE THYROXINE) 0.76 ng/dL (0.76-1.46); THYROID STIMULATING HORMONE 3.77 uIU/mL (0.36-3.74)
[2019-03-09] MEDS: DOCUSATE SODIUM 250 MG CAPSULE PO SCH (08:41)
[2019-03-09 08:57] VITALS: BP 146/70
[2019-03-09 16:14] VITALS: BP 136/68
[2019-03-09 20:15] VITALS: BP 112/62
[2019-03-09] MEDS: CloNIDine HCL 0.1 MG TABLET PO SCH (20:18)
[2019-03-09] MEDS: ZOLPIDEM TARTRATE 5 MG TABLET PO PRN (21:22)
[2019-03-10 06:43] VITALS: BP 110/62
[2019-03-10] MEDS: LEVOTHYROXINE SODIUM 137 MCG TABLET PO SCH (06:44)
[2019-03-10] MEDS: MELOXICAM 7.5 MG TABLET PO SCH (06:53)
[2019-03-10 08:07] VITALS: BP 114/62
[2019-03-10] MEDS: ASPIRIN 81 MG CHEWABLE TABLET PO SCH (08:32)
[2019-03-10] MEDS: FluPHENAZine HCL 5 MG TABLET PO SCH ×2 (08:32→17:10)
[2019-03-10] MEDS: CETIRIZINE HCL 10 MG TABLET PO SCH (08:32)
[2019-03-10] MEDS: FOLIC ACID 1 MG TABLET PO SCH (08:32)
[2019-03-10] MEDS: LOSARTAN POTASSIUM 25 MG TABLET PO SCH (08:32)
[2019-03-10] MEDS: DOCUSATE SODIUM 250 MG CAPSULE PO SCH (08:32)
[2019-03-10] MEDS: MULTIVITAMINS WITH MINERALS, THERAPEUTIC TABLET PO SCH (08:32)
[2019-03-10] MEDS: NYSTATIN 15 GM POWDER BOTTLE TP SCH ×2 (08:33→17:10)
[2019-03-10 16:13] VITALS: BP 118/66
[2019-03-10 19:43] VITALS: BP 131/60
[2019-03-10] MEDS: CloNIDine HCL 0.1 MG TABLET PO SCH (20:11)
[2019-03-10] MEDS: ZOLPIDEM TARTRATE 5 MG TABLET PO PRN (21:10)
[2019-03-11] MEDS: LEVOTHYROXINE SODIUM 137 MCG TABLET PO SCH (06:21)
[2019-03-11] MEDS: MELOXICAM 7.5 MG TABLET PO SCH (06:37)
[2019-03-11 07:22] VITALS: BP 120/72
[2019-03-11 08:12] VITALS: BP 103/60
[2019-03-11 08:40] VITALS: BP 111/68
[2019-03-11] MEDS: ASPIRIN 81 MG CHEWABLE TABLET PO SCH (08:42)
[2019-03-11] MEDS: DOCUSATE SODIUM 250 MG CAPSULE PO SCH (08:42)
[2019-03-11] MEDS: FOLIC ACID 1 MG TABLET PO SCH (08:42)
[2019-03-11] MEDS: FluPHENAZine HCL 5 MG TABLET PO SCH ×2 (08:43→16:10)
[2019-03-11] MEDS: NYSTATIN 15 GM POWDER BOTTLE TP SCH ×2 (08:43→16:25)
[2019-03-11] MEDS: LOSARTAN POTASSIUM 25 MG TABLET PO SCH (08:43)
[2019-03-11] MEDS: CETIRIZINE HCL 10 MG TABLET PO SCH (08:43)
[2019-03-11] MEDS: MULTIVITAMINS WITH MINERALS, THERAPEUTIC TABLET PO SCH (08:43)
[2019-03-11 12:03] VITALS: BP 114/72
[2019-03-11] MEDS: ACETAMINOPHEN 325 MG TABLET PO PRN (12:03)
[2019-03-11] MEDS: ChlorproMAZINE HCL 50 MG TABLET PO PRN (14:18)
[2019-03-11 20:38] VITALS: BP 114/76
[2019-03-11] MEDS: CloNIDine HCL 0.1 MG TABLET PO SCH (20:38)
[2019-03-11] MEDS: ZOLPIDEM TARTRATE 5 MG TABLET PO PRN (20:48)
[2019-03-12 06:19] VITALS: BP 100/55
[2019-03-12] MEDS: LEVOTHYROXINE SODIUM 137 MCG TABLET PO SCH (06:57)
[2019-03-12] MEDS: MELOXICAM 7.5 MG TABLET PO SCH (06:58)
[2019-03-12 08:01] VITALS: BP 134/82
[2019-03-12] MEDS: FOLIC ACID 1 MG TABLET PO SCH (08:18)
[2019-03-12] MEDS: CETIRIZINE HCL 10 MG TABLET PO SCH (08:18)
[2019-03-12] MEDS: FluPHENAZine HCL 5 MG TABLET PO SCH ×2 (08:18→16:14)
[2019-03-12] MEDS: MULTIVITAMINS WITH MINERALS, THERAPEUTIC TABLET PO SCH (08:18)
[2019-03-12] MEDS: LOSARTAN POTASSIUM 25 MG TABLET PO SCH (08:18)
[2019-03-12] MEDS: ASPIRIN 81 MG CHEWABLE TABLET PO SCH (08:18)
[2019-03-12] MEDS: ARIPiprazole 5 MG TABLET PO SCH ×2 (08:26→20:23)
[2019-03-12] MEDS: DOCUSATE SODIUM 250 MG CAPSULE PO SCH (08:26)
[2019-03-12] MEDS: ACETAMINOPHEN 325 MG TABLET PO PRN ×2 (08:27→16:46)
[2019-03-12] MEDS: NYSTATIN 15 GM POWDER BOTTLE TP SCH ×2 (08:27→16:19)
[2019-03-12 16:33] VITALS: BP 112/74
[2019-03-12 20:00] VITALS: BP 121/84
[2019-03-12] MEDS: CloNIDine HCL 0.1 MG TABLET PO SCH (20:09)
[2019-03-12] MEDS: ZOLPIDEM TARTRATE 5 MG TABLET PO PRN (21:35)
[2019-03-13 00:30] VITALS: BP 116/55
[2019-03-13] MEDS: LORazepam 1 MG TABLET PO PRN ×2 (01:15→20:03)
[2019-03-13] MEDS ORDERED: FluPHENAZine HCL 2.5 MG/ML INJ IM ONE ×2 (02:26→02:30)
[2019-03-13] MEDS ORDERED: DiphenhydrAMINE HCL 50 MG/ML VIAL ONE (02:27)
[2019-03-13] MEDS ORDERED: LORazepam 2 MG/ML VIAL ONE (02:27)
[2019-03-13] MEDS ORDERED: DiphenhydrAMINE HCL 50 MG/ML VIAL IM ONE (02:30)
[2019-03-13] MEDS ORDERED: LORazepam 2 MG/ML VIAL IM ONE (02:30)
[2019-03-13 03:15] VITALS: BP 109/68
[2019-03-13] MEDS: LEVOTHYROXINE SODIUM 137 MCG TABLET PO SCH (06:30)
[2019-03-13] MEDS: MELOXICAM 7.5 MG TABLET PO SCH (06:58)
[2019-03-13] MEDS: DOCUSATE SODIUM 250 MG CAPSULE PO SCH (09:00)
[2019-03-13 09:45] VITALS: BP 140/62
[2019-03-13] MEDS: CETIRIZINE HCL 10 MG TABLET PO SCH (09:48)
[2019-03-13] MEDS: RisperiDONE 1 MG TABLET PO SCH ×2 (09:48→20:16)
[2019-03-13] MEDS: FluPHENAZine HCL 5 MG TABLET PO SCH ×2 (09:48→17:03)
[2019-03-13] MEDS: ASPIRIN 81 MG CHEWABLE TABLET PO SCH (09:48)
[2019-03-13] MEDS: FOLIC ACID 1 MG TABLET PO SCH (09:48)
[2019-03-13] MEDS: LOSARTAN POTASSIUM 25 MG TABLET PO SCH (09:48)
[2019-03-13] MEDS: MULTIVITAMINS WITH MINERALS, THERAPEUTIC TABLET PO SCH (09:48)
[2019-03-13] MEDS: NYSTATIN 15 GM POWDER BOTTLE TP SCH ×2 (09:49→17:03)
[2019-03-13] MEDS: ChlorproMAZINE HCL 50 MG TABLET PO PRN (20:03)
[2019-03-13 20:15] VITALS: BP 117/62
[2019-03-13] MEDS: CloNIDine HCL 0.1 MG TABLET PO SCH (20:16)
[2019-03-13] MEDS: ZOLPIDEM TARTRATE 5 MG TABLET PO PRN (21:04)
[2019-03-14] MEDS: MELOXICAM 7.5 MG TABLET PO SCH (07:06)
[2019-03-14] MEDS: LEVOTHYROXINE SODIUM 137 MCG TABLET PO SCH (07:06)
[2019-03-14] MEDS: LOSARTAN POTASSIUM 25 MG TABLET PO SCH (09:00)
[2019-03-14] MEDS: RisperiDONE 1 MG TABLET PO SCH ×2 (09:00→21:00)
[2019-03-14] MEDS: CETIRIZINE HCL 10 MG TABLET PO SCH (09:00)
[2019-03-14] MEDS: NYSTATIN 15 GM POWDER BOTTLE TP SCH ×2 (09:00→16:08)
[2019-03-14] MEDS: ASPIRIN 81 MG CHEWABLE TABLET PO SCH (09:00)
[2019-03-14] MEDS: FOLIC ACID 1 MG TABLET PO SCH (09:00)
[2019-03-14] MEDS: MULTIVITAMINS WITH MINERALS, THERAPEUTIC TABLET PO SCH (09:00)
[2019-03-14] MEDS: DOCUSATE SODIUM 250 MG CAPSULE PO SCH (09:00)
[2019-03-14] MEDS: FluPHENAZine HCL 5 MG TABLET PO SCH ×2 (09:00→16:07)
[2019-03-14 10:11] VITALS: BP 109/60
[2019-03-14] MEDS ORDERED: GuaiFENesin/D-METHORPHAN [SUGAR-FREE] 200-20MG/10 ML SYRUP UDCUP PO PRN (15:00)
[2019-03-14] MEDS ORDERED: HydrOXYzine PAMOATE 50 MG CAPSULE PO PRN (15:00)
[2019-03-14] MEDS ORDERED: PROMETHAZINE HCL 25 MG TABLET PO PRN (15:00)
[2019-03-14] MEDS ORDERED: LOPERAMIDE HCL 2 MG CAPSULE PO PRN (15:00)
[2019-03-14] MEDS ORDERED: MAGNESIUM HYDROXIDE SUSPENSION 30 ML UDCUP PO PRN (15:00)
[2019-03-14] MEDS ORDERED: MAG HYDROX/AL HYDROX/SIMETH ES 30 ML SUSPENSION UDCUP PO PRN (15:00)
[2019-03-14] MEDS: THIAMINE HCL 100 MG TABLET PO SCH (16:08)
[2019-03-14 16:25] VITALS: BP 140/65
[2019-03-14] MEDS: CloNIDine HCL 0.1 MG TABLET PO SCH (20:07)
[2019-03-14] MEDS: ZOLPIDEM TARTRATE 5 MG TABLET PO PRN (21:04)
[2019-03-15 06:50] VITALS: BP 108/56
[2019-03-15] MEDS: MELOXICAM 7.5 MG TABLET PO SCH (06:57)
[2019-03-15] MEDS: LEVOTHYROXINE SODIUM 137 MCG TABLET PO SCH (06:57)
[2019-03-15 08:22] VITALS: BP 113/69
[2019-03-15] MEDS: RisperiDONE 1 MG TABLET PO SCH (09:00)
[2019-03-15] MEDS: DOCUSATE SODIUM 250 MG CAPSULE PO SCH (09:00)
[2019-03-15] MEDS: FOLIC ACID 1 MG TABLET PO SCH (10:17)
[2019-03-15] MEDS: FluPHENAZine HCL 5 MG TABLET PO SCH ×2 (10:17→16:26)
[2019-03-15] MEDS: MULTIVITAMINS WITH MINERALS, THERAPEUTIC TABLET PO SCH (10:18)
[2019-03-15] MEDS: LOSARTAN POTASSIUM 25 MG TABLET PO SCH (10:18)
[2019-03-15] MEDS: THIAMINE HCL 100 MG TABLET PO SCH ×2 (10:18→16:26)
[2019-03-15] MEDS: NYSTATIN 15 GM POWDER BOTTLE TP SCH ×2 (10:18→16:27)
[2019-03-15] MEDS: ASPIRIN 81 MG CHEWABLE TABLET PO SCH (10:18)
[2019-03-15] MEDS: CETIRIZINE HCL 10 MG TABLET PO SCH (10:18)
[2019-03-15 16:10] VITALS: BP 131/62
[2019-03-15] MEDS: LORazepam 1 MG TABLET PO PRN (19:58)
[2019-03-15] MEDS: CloNIDine HCL 0.1 MG TABLET PO SCH (20:17)
[2019-03-15] MEDS: DiphenhydrAMINE HCL 25 MG CAPSULE PO SCH (20:17)
[2019-03-15] MEDS: RisperiDONE 4 MG TABLET PO SCH (20:17)
[2019-03-15] MEDS: ZOLPIDEM TARTRATE 5 MG TABLET PO PRN (23:36)
[2019-03-16 00:06] VITALS: BP 118/62
[2019-03-16] MEDS: LEVOTHYROXINE SODIUM 137 MCG TABLET PO SCH (06:30)
[2019-03-16] MEDS: MELOXICAM 7.5 MG TABLET PO SCH (07:00)
[2019-03-16] MEDS: DOCUSATE SODIUM 250 MG CAPSULE PO SCH (09:00)
[2019-03-16 09:50] VITALS: BP 126/64
[2019-03-16] MEDS: LOSARTAN POTASSIUM 25 MG TABLET PO SCH (09:59)
[2019-03-16] MEDS: FOLIC ACID 1 MG TABLET PO SCH (09:59)
[2019-03-16] MEDS: FluPHENAZine HCL 5 MG TABLET PO SCH ×2 (09:59→17:06)
[2019-03-16] MEDS: ASPIRIN 81 MG CHEWABLE TABLET PO SCH (09:59)
[2019-03-16] MEDS: THIAMINE HCL 100 MG TABLET PO SCH ×2 (10:00→17:06)
[2019-03-16] MEDS: CETIRIZINE HCL 10 MG TABLET PO SCH (10:00)
[2019-03-16] MEDS: MULTIVITAMINS WITH MINERALS, THERAPEUTIC TABLET PO SCH (10:00)
[2019-03-16] MEDS: NYSTATIN 15 GM POWDER BOTTLE TP SCH ×2 (10:00→17:12)
[2019-03-16 18:46] VITALS: BP 121/58
[2019-03-16 20:35] VITALS: BP 112/67
[2019-03-16] MEDS: RisperiDONE 4 MG TABLET PO SCH (20:39)
[2019-03-16] MEDS: CloNIDine HCL 0.1 MG TABLET PO SCH (20:39)
[2019-03-16] MEDS: DiphenhydrAMINE HCL 25 MG CAPSULE PO SCH ×2 (20:49→21:02)
[2019-03-16] MEDS: ZOLPIDEM TARTRATE 5 MG TABLET PO PRN (22:01)
[2019-03-16] MEDS: ChlorproMAZINE HCL 50 MG TABLET PO PRN (23:08)
[2019-03-17] VITALS (10 sets, daily range): BP systolic 100–142; BP diastolic 63–86
[2019-03-17] MEDS: LORazepam 1 MG TABLET PO PRN (02:27)
[2019-03-17] MEDS: LEVOTHYROXINE SODIUM 137 MCG TABLET PO SCH (06:39)
[2019-03-17] MEDS: MELOXICAM 7.5 MG TABLET PO SCH (06:39)
[2019-03-17] MEDS: MULTIVITAMINS WITH MINERALS, THERAPEUTIC TABLET PO SCH (08:13)
[2019-03-17] MEDS: FluPHENAZine HCL 5 MG TABLET PO SCH ×2 (08:13→20:43)
[2019-03-17] MEDS: THIAMINE HCL 100 MG TABLET PO SCH ×2 (08:13→17:19)
[2019-03-17] MEDS: FOLIC ACID 1 MG TABLET PO SCH (08:13)
[2019-03-17] MEDS: CETIRIZINE HCL 10 MG TABLET PO SCH (08:13)
[2019-03-17] MEDS: LOSARTAN POTASSIUM 25 MG TABLET PO SCH (08:14)
[2019-03-17] MEDS: NYSTATIN 15 GM POWDER BOTTLE TP SCH ×2 (08:14→17:19)
[2019-03-17] MEDS: ASPIRIN 81 MG CHEWABLE TABLET PO SCH (08:14)
[2019-03-17] MEDS: DOCUSATE SODIUM 250 MG CAPSULE PO SCH (08:14)
[2019-03-17] MEDS: ACETAMINOPHEN 325 MG TABLET PO PRN (10:10)
[2019-03-17] MEDS ORDERED: RisperiDONE 1 MG TABLET PO PRN (15:45)
[2019-03-17] MEDS ORDERED: LORazepam 0.5 MG TABLET PO PRN (16:15)
[2019-03-17] MEDS: DiphenhydrAMINE HCL 25 MG CAPSULE PO SCH (20:43)
[2019-03-17] MEDS: RisperiDONE 4 MG TABLET PO SCH (20:43)
[2019-03-17] MEDS: CloNIDine HCL 0.1 MG TABLET PO SCH (20:43)
[2019-03-17] MEDS: IBUPROFEN 600 MG TABLET PO PRN (20:54)
[2019-03-17] MEDS ORDERED: RisperiDONE MICROSPHERES 50 MG/2 ML SYRINGE IM ONE (21:00)
[2019-03-18 04:30] VITALS: BP 132/72
[2019-03-18] MEDS: LEVOTHYROXINE SODIUM 137 MCG TABLET PO SCH (06:49)
[2019-03-18] MEDS: IBUPROFEN 600 MG TABLET PO PRN ×3 (06:50→20:56)
[2019-03-18] MEDS: MELOXICAM 7.5 MG TABLET PO SCH (06:50)
[2019-03-18 08:13] VITALS: BP 123/63
[2019-03-18] MEDS: DOCUSATE SODIUM 250 MG CAPSULE PO SCH (09:00)
[2019-03-18] MEDS: MULTIVITAMINS WITH MINERALS, THERAPEUTIC TABLET PO SCH (09:17)
[2019-03-18] MEDS: CETIRIZINE HCL 10 MG TABLET PO SCH (09:17)
[2019-03-18] MEDS: THIAMINE HCL 100 MG TABLET PO SCH ×2 (09:18→16:14)
[2019-03-18] MEDS: ASPIRIN 81 MG CHEWABLE TABLET PO SCH (09:18)
[2019-03-18] MEDS: FluPHENAZine HCL 5 MG TABLET PO SCH ×2 (09:18→16:14)
[2019-03-18] MEDS: FOLIC ACID 1 MG TABLET PO SCH (09:18)
[2019-03-18] MEDS: LOSARTAN POTASSIUM 25 MG TABLET PO SCH (09:18)
[2019-03-18] MEDS: NYSTATIN 15 GM POWDER BOTTLE TP SCH ×2 (09:19→16:17)
[2019-03-18 14:38] VITALS: BP 128/70
[2019-03-18] MEDS ORDERED: FluPHENAZine DECANOATE 25 MG/ML IM ONE (16:00)
[2019-03-18 16:09] VITALS: BP 112/71
[2019-03-18 20:56] VITALS: BP 131/72
[2019-03-18] MEDS: CloNIDine HCL 0.1 MG TABLET PO SCH (20:56)
[2019-03-18] MEDS: ZOLPIDEM TARTRATE 5 MG TABLET PO PRN (20:56)
[2019-03-18] MEDS: DiphenhydrAMINE HCL 25 MG CAPSULE PO SCH (20:57)
[2019-03-19 06:12] VITALS: BP 134/75
[2019-03-19] MEDS: LEVOTHYROXINE SODIUM 137 MCG TABLET PO SCH (06:50)
[2019-03-19] MEDS: MELOXICAM 7.5 MG TABLET PO SCH (06:50)
[2019-03-19 08:19] VITALS: BP 95/50
[2019-03-19 08:55] VITALS: BP 116/86
[2019-03-19] MEDS: LOSARTAN POTASSIUM 25 MG TABLET PO SCH (08:59)
[2019-03-19] MEDS: MULTIVITAMINS WITH MINERALS, THERAPEUTIC TABLET PO SCH (08:59)
[2019-03-19] MEDS: FluPHENAZine HCL 5 MG TABLET PO SCH ×2 (08:59→16:16)
[2019-03-19] MEDS: FOLIC ACID 1 MG TABLET PO SCH (08:59)
[2019-03-19] MEDS: THIAMINE HCL 100 MG TABLET PO SCH ×2 (08:59→16:16)
[2019-03-19] MEDS: CETIRIZINE HCL 10 MG TABLET PO SCH (09:00)
[2019-03-19] MEDS: NYSTATIN 15 GM POWDER BOTTLE TP SCH ×2 (09:00→17:00)
[2019-03-19] MEDS: DOCUSATE SODIUM 250 MG CAPSULE PO SCH (09:00)
[2019-03-19] MEDS: ASPIRIN 81 MG CHEWABLE TABLET PO SCH (09:00)
[2019-03-19 12:31] VITALS: BP 112/78
[2019-03-19] MEDS: IBUPROFEN 600 MG TABLET PO PRN ×2 (12:31→22:11)
[2019-03-19 16:14] VITALS: BP 123/62
[2019-03-19 20:25] VITALS: BP 132/62
[2019-03-19] MEDS: ZOLPIDEM TARTRATE 5 MG TABLET PO PRN (20:26)
[2019-03-19] MEDS: CloNIDine HCL 0.1 MG TABLET PO SCH (20:26)
[2019-03-19] MEDS: DiphenhydrAMINE HCL 25 MG CAPSULE PO SCH (20:27)
[2019-03-20] MEDS: LEVOTHYROXINE SODIUM 137 MCG TABLET PO SCH (06:17)
[2019-03-20] MEDS: MELOXICAM 7.5 MG TABLET PO SCH (06:45)
[2019-03-20] MEDS: IBUPROFEN 600 MG TABLET PO PRN ×2 (07:10→16:07)
[2019-03-20] MEDS: NYSTATIN 15 GM POWDER BOTTLE TP SCH ×2 (09:00→16:07)
[2019-03-20] MEDS: DOCUSATE SODIUM 250 MG CAPSULE PO SCH (09:00)
[2019-03-20 09:45] VITALS: BP 127/63
[2019-03-20] MEDS: ASPIRIN 81 MG CHEWABLE TABLET PO SCH (09:45)
[2019-03-20] MEDS: FluPHENAZine HCL 5 MG TABLET PO SCH ×2 (09:45→16:07)
[2019-03-20] MEDS: THIAMINE HCL 100 MG TABLET PO SCH ×2 (09:45→16:07)
[2019-03-20] MEDS: CETIRIZINE HCL 10 MG TABLET PO SCH (09:45)
[2019-03-20] MEDS: LOSARTAN POTASSIUM 25 MG TABLET PO SCH (09:45)
[2019-03-20] MEDS: FOLIC ACID 1 MG TABLET PO SCH (09:45)
[2019-03-20] MEDS: MULTIVITAMINS WITH MINERALS, THERAPEUTIC TABLET PO SCH (09:45)
[2019-03-20 16:07] VITALS: BP 134/69
[2019-03-20 20:43] VITALS: BP 132/86
[2019-03-20] MEDS: CloNIDine HCL 0.1 MG TABLET PO SCH (20:43)
[2019-03-20] MEDS: ZOLPIDEM TARTRATE 5 MG TABLET PO PRN (20:43)
[2019-03-20] MEDS: DiphenhydrAMINE HCL 25 MG CAPSULE PO SCH (20:51)
[2019-03-21] MEDS: MELOXICAM 7.5 MG TABLET PO SCH (07:09)
[2019-03-21] MEDS: LEVOTHYROXINE SODIUM 137 MCG TABLET PO SCH (07:09)
[2019-03-21] MEDS: FOLIC ACID 1 MG TABLET PO SCH (09:17)
[2019-03-21] MEDS: ASPIRIN 81 MG CHEWABLE TABLET PO SCH (09:17)
[2019-03-21] MEDS: THIAMINE HCL 100 MG TABLET PO SCH (09:17)
[2019-03-21] MEDS: FluPHENAZine HCL 5 MG TABLET PO SCH (09:17)
[2019-03-21] MEDS: MULTIVITAMINS WITH MINERALS, THERAPEUTIC TABLET PO SCH (09:17)
[2019-03-21] MEDS: DOCUSATE SODIUM 250 MG CAPSULE PO SCH (09:17)
[2019-03-21] MEDS: NYSTATIN 15 GM POWDER BOTTLE TP SCH (09:18)
[2019-03-21] MEDS: CETIRIZINE HCL 10 MG TABLET PO SCH (09:18)
[2019-03-21] MEDS: LOSARTAN POTASSIUM 25 MG TABLET PO SCH (09:18)
[2019-03-21 09:39] VITALS: BP 130/80
[2019-03-21] MEDS: IBUPROFEN 600 MG TABLET PO PRN (09:39)
[2019-03-21 10:39] VITALS: BP 118/77
[2019-03-21] MEDS ORDERED: FLUP5 PO (12:00)
[2019-03-21] MEDS ORDERED: CLON-570 PO (12:00)
[2019-03-21] MEDS ORDERED: CETI10TA59 PO (13:20)
[2019-03-21] MEDS ORDERED: DIPH25 PO (13:22)
[2019-03-21] MEDS ORDERED: DIPH50 PO (13:23)
[2019-03-31] MEDS ORDERED: RisperiDONE MICROSPHERES 50 MG/2 ML SYRINGE IM SCH (09:00)
[2019-04-01] MEDS ORDERED: FluPHENAZine DECANOATE 25 MG/ML IM SCH (09:00)
== END 2019-03-21 16:00 | disposition home or self-care (01) | DRG 885 ==
LOC: EMS 14:20 → B2X 03-08 15:21
PROVIDERS: ADMIT Psychiatry & Neurology Psychiatry; ATTEND Psychiatry & Neurology Psychiatry
DX: F20.0 Paranoid schizophrenia (principal); F72 Severe intellectual disabilities; R45.851 Suicidal ideations; E03.9 Hypothyroidism, unspecified; E78.00 Pure hypercholesterolemia, unspecified; E78.5 Hyperlipidemia, unspecified; I10 Essential (primary) hypertension; J30.9 Allergic rhinitis, unspecified; J44.9 Chronic obstructive pulmonary disease, unspecified; K21.9 Gastro-esophageal reflux disease without esophagitis; K59.00 Constipation, unspecified; F17.210 Nicotine dependence, cigarettes, uncomplicated; E66.9 Obesity, unspecified; F32.9 Major depressive disorder, single episode, unspecified; M19.90 Unspecified osteoarthritis, unspecified site; R62.50 Unspecified lack of expected normal physiological development in childhood; Z91.14 Patient's other noncompliance with medication regimen; Z68.39 Body mass index [BMI] 39.0-39.9, adult; Z79.899 Other long term (current) drug therapy
CPT/HCPCS: 83036; 84439; 84443; G0480; J1200; J2060; J2680; J2794; J3490

== ENCOUNTER 2019-03-17 14:22 | Emergency (ER) | payer OTHER ==
[~2019-03-17] VITALS: Ht 162.6 cm; Wt 90.9 kg
[~2019-03-17 14:22] MED LIST changes: +CETI10TA59 PO; +CLON.2 PO; +FLUD25I IM; +LEVO137T24 PO; +MELO-107 PO; +QUET300T2 PO; +RISP.5 PO
[2019-03-17] MEDS ORDERED: IBUPROFEN 600 MG TABLET PO ONE (15:00)
[2019-03-17 16:38] VITALS: BP 123/68
== END 2019-03-17 16:38 | disposition home or self-care (01) ==
LOC: EMS 14:24
DX: S40.012A Contusion of left shoulder, initial encounter (principal); S20.212A Contusion of left front wall of thorax, initial encounter; E78.00 Pure hypercholesterolemia, unspecified; E03.9 Hypothyroidism, unspecified; J44.9 Chronic obstructive pulmonary disease, unspecified; K21.9 Gastro-esophageal reflux disease without esophagitis; F20.9 Schizophrenia, unspecified; F31.9 Bipolar disorder, unspecified; F17.210 Nicotine dependence, cigarettes, uncomplicated; Z98.890 Other specified postprocedural states; Z79.899 Other long term (current) drug therapy; W18.39XA Other fall on same level, initial encounter; Y93.89 Activity, other specified; Y92.89 Other specified places as the place of occurrence of the external cause; Y99.8 Other external cause status

== ENCOUNTER 2019-05-23 16:58 | Emergency (ER) | payer OTHER ==
[~2019-05-23] VITALS: Ht 154.9 cm; Wt 115.9 kg
[~2019-05-23 16:58] MED LIST changes: +CLON-570 PO; -CLON.2 PO; +DIPH50 PO; -FLUD25I IM; +FLUP5 PO; -FOLI1 PO; -HALO5TAB2 PO; -MULT-1239 PO; -OXCA300T29 PO; -QUET300T2 PO; -RISP.5 PO; -THIA100T67 PO
[2019-05-23] MEDS ORDERED: RISP.5 PO ×2 (17:33)
[2019-05-23] MEDS ORDERED: OXCA300T29 PO (17:33)
[2019-05-23] MEDS ORDERED: XALA2.5OS OU (17:33)
[2019-05-23] MEDS ORDERED: ARIP5TAB8 PO (17:33)
[2019-05-23] MEDS ORDERED: QUET300T2 PO (17:33)
[2019-05-23] MEDS ORDERED: POLY90PO MC (17:33)
[2019-05-23] MEDS ORDERED: ALBU8HFA IH (17:33)
[2019-05-23] MEDS ORDERED: FLUT16H NASAL (17:33)
[2019-05-23] MEDS ORDERED: RANI150T7 PO (17:33)
[2019-05-23] MEDS ORDERED: DONE10TA8 PO (17:33)
[2019-05-23] MEDS ORDERED: THIA100T78 PO (17:33)
[2019-05-23] MEDS ORDERED: FOLI1 PO (17:33)
[2019-05-23] MEDS ORDERED: QUET25TA PO (17:33)
[2019-05-23] MEDS ORDERED: CHLO25 PO (17:33)
[2019-05-23] MEDS ORDERED: TIOT185 IH (17:33)
[2019-05-23] MEDS ORDERED: MULT-723 PO (17:33)
[2019-05-23] MEDS ORDERED: PROM5SYR2 PO (17:33)
[2019-05-23] MEDS ORDERED: [UNRECOGNIZED DRUG - CODE] PO (17:33)
[2019-05-23 19:43] LABS: AMPHET/METH SCREEN,URINE NEGATIVE (NEGATIVE); BARBITURATE SCREEN, URINE NEGATIVE (NEGATIVE); BENZODIAZEPINES SCREEN,URINE NEGATIVE (NEGATIVE); CANNABINOID SCREEN,URINE NEGATIVE (NEGATIVE); COCAINE SCREEN,URINE NEGATIVE (NEGATIVE); METHADONE SCREEN, URINE NEGATIVE (NEGATIVE); OPIATE SCREEN,URINE NEGATIVE (NEGATIVE)
[2019-05-23 19:46] LABS: PHENCYCLIDINE SCREEN,URINE NEGATIVE (NEGATIVE)
[2019-05-23 21:30] VITALS: BP 133/60
== END 2019-05-23 22:55 | disposition home or self-care (01) ==
LOC: EMS 17:00
DX: F20.9 Schizophrenia, unspecified (principal); F32.9 Major depressive disorder, single episode, unspecified; E03.9 Hypothyroidism, unspecified; E78.00 Pure hypercholesterolemia, unspecified; K21.9 Gastro-esophageal reflux disease without esophagitis; J44.9 Chronic obstructive pulmonary disease, unspecified; F17.210 Nicotine dependence, cigarettes, uncomplicated; Z79.899 Other long term (current) drug therapy

== ENCOUNTER 2019-05-26 13:40 | Inpatient (IN) | payer MEDICARE, MEDICAID ==
[~2019-05-26] VITALS: Ht 162.6 cm; Wt 113.4 kg
[~2019-05-26 13:40] MED LIST changes: +ALBU8HFA IH; +ARIP5TAB8 PO; +CHLO25 PO; +DONE10TA8 PO; +FLUT16H NASAL; +FOLI1 PO; +MULT-723 PO; +OXCA300T29 PO; +POLY90PO MC; +PROM5SYR2 PO; +QUET25TA PO; +QUET300T2 PO; +RANI150T7 PO; +RISP.5 PO; +THIA100T78 PO; +TIOT185 IH; +XALA2.5OS OU; +[UNRECOGNIZED DRUG - CODE] PO
[2019-05-26 15:30] LABS: BASOPHILS % (AUTO) 0.7 % (0.0-2.0); EOSINOPHILS % (AUTO) 0.6 % (1.0-6.0); HEMATOCRIT 38.8 % (36-46); HEMOGLOBIN 12.5 g/dL (12.0-16.0); LYMPHOCYTES % (AUTO) 23.2 % (22.0-44.0); MEAN CORPUSCULAR HEMOGLOBIN 29.9 pg (26.0-34.0); MEAN CORPUSCULAR HGB CONC 32.3 G/dL (31.0-37.0); MEAN CORPUSCULAR VOLUME 93 fL (80-100); MONOCYTES # (AUTO) 0.6 K/uL (0.1-1.0); MONOCYTES % (AUTO) 7.1 % (2.0-9.0); NEUTROPHILS % (AUTO) 68.4 % (40.0-70.0); PLATELET COUNT (AUTO) 342 K/uL (150-450); RED BLOOD CELL COUNT(AUTO) 4.19 MIL/uL (4.00-5.20); RED CELL DISTRIBUTION WIDTH 14.8 % (11.5-14.5)
[2019-05-26 15:44] LABS: ANION GAP 7 mmol/L (8-16); CALCIUM, TOTAL 9.7 mg/dL (8.8-10.5); CARBON DIOXIDE 31 mmol/L (22-29); CHLORIDE 97 mmol/L (98-107); CREATININE 0.93 mg/dL (0.60-1.30); GLOMERULAR FILTR. RATE CALC > 60 mL/min (>60); GLUCOSE,RANDOM 95 mg/dL (70-110); POTASSIUM 4.4 mmol/L (3.5-5.1); SODIUM SERUM 135 mmol/L (136-145); UREA NITROGEN, BLOOD 12 mg/dL (7-18)
[2019-05-26 15:50] LABS: ALANINE AMINOTRANSFERASE 30 U/L (12-78); ALBUMIN 3.7 g/dL (3.4-5.0); ALKALINE PHOSPHATASE 88 U/L (46-116); ASPARTATE AMINOTRANSFERASE 16 U/L (15-37); BILIRUBIN,TOTAL 0.2 mg/dL (0.1-1.0); TOTAL PROTEIN, SERUM 7.5 g/dL (6.4-8.2)
[2019-05-26] MEDS ORDERED: HALOPERIDOL LACTATE 5 MG/ML VIAL IM ONE ×2 (16:00→21:45)
[2019-05-26] MEDS ORDERED: LORazepam 2 MG/ML VIAL IM ONE ×2 (16:00→21:45)
[2019-05-26 16:26] LABS: AMPHET/METH SCREEN,URINE NEGATIVE (NEGATIVE); BARBITURATE SCREEN, URINE NEGATIVE (NEGATIVE); BENZODIAZEPINES SCREEN,URINE NEGATIVE (NEGATIVE); CANNABINOID SCREEN,URINE NEGATIVE (NEGATIVE); COCAINE SCREEN,URINE NEGATIVE (NEGATIVE); METHADONE SCREEN, URINE NEGATIVE (NEGATIVE); OPIATE SCREEN,URINE NEGATIVE (NEGATIVE); PHENCYCLIDINE SCREEN,URINE NEGATIVE (NEGATIVE)
[2019-05-26] MEDS ORDERED: DiphenhydrAMINE HCL 50 MG/ML VIAL IM ONE (23:15)
[2019-05-27] MEDS ORDERED: LORazepam 2 MG/ML VIAL IM ONE (04:00)
[2019-05-27] MEDS ORDERED: DiphenhydrAMINE HCL 50 MG/ML VIAL IM ONE (07:30)
[2019-05-28] MEDS ORDERED: HALOPERIDOL 5 MG TABLET PO PRN (03:30)
[2019-05-28] MEDS ORDERED: ZOLPIDEM TARTRATE 10 MG TABLET PO PRN (03:30)
[2019-05-28 05:27] VITALS: BP 120/61
[2019-05-28] MEDS ORDERED: -PHARMACY VACCINE NOTE- MISC ONE (07:00)
[2019-05-28 11:05] VITALS: BP 122/83
[2019-05-28] MEDS ORDERED: POLY238P2 PO (11:16)
[2019-05-28] MEDS: FluPHENAZine HCL 10 MG TABLET PO SCH ×2 (13:15→16:30)
[2019-05-28 16:19] VITALS: BP 124/64
[2019-05-28] MEDS: LORazepam 2 MG TABLET PO PRN (23:27)
[2019-05-29 06:46] VITALS: BP 120/81
[2019-05-29 08:28] VITALS: BP 120/93
[2019-05-29] MEDS: FluPHENAZine HCL 10 MG TABLET PO SCH ×3 (08:37→16:34)
[2019-05-29] MEDS: LORazepam 2 MG TABLET PO PRN (14:15)
[2019-05-29 16:12] VITALS: BP 121/64
[2019-05-30 05:01] VITALS: BP 119/70
[2019-05-30] MEDS: LORazepam 2 MG TABLET PO PRN (05:13)
[2019-05-30] MEDS ORDERED: ALBUTEROL SULFATE HFA 90 MCG/PUFF 8 GM INHALER IH PRN (07:00)
[2019-05-30 07:53] LABS: HEMOGLOBIN A1C 5.9 % (4.5-6.2)
[2019-05-30 08:00] VITALS: BP 110/68
[2019-05-30 08:14] LABS: CHOL/HDL RATIO 2.9 (3.9-5.7); THYROID STIMULATING HORMONE 7.18 uIU/mL (0.36-3.74)
[2019-05-30] MEDS: DOCUSATE SODIUM 250 MG CAPSULE PO SCH (09:00)
[2019-05-30] MEDS: FluPHENAZine HCL 10 MG TABLET PO SCH ×3 (09:10→16:28)
[2019-05-30] MEDS: ASPIRIN 81 MG CHEWABLE TABLET PO SCH (09:11)
[2019-05-30] MEDS ORDERED: LEVOTHYROXINE SODIUM 100 MCG TABLET PO ONE (10:30)
[2019-05-30 16:13] VITALS: BP 115/62
[2019-05-30] MEDS ORDERED: MAG HYDROX/AL HYDROX/SIMETH ES 30 ML SUSPENSION UDCUP PO PRN (16:15)
[2019-05-30] MEDS ORDERED: ACETAMINOPHEN 325 MG TABLET PO PRN (16:15)
[2019-05-30] MEDS ORDERED: PROMETHAZINE HCL 25 MG TABLET PO PRN ×2 (16:15)
[2019-05-30] MEDS ORDERED: LOPERAMIDE HCL 2 MG CAPSULE PO PRN (16:15)
[2019-05-30] MEDS ORDERED: GuaiFENesin/D-METHORPHAN [SUGAR-FREE] 200-20MG/10 ML SYRUP UDCUP PO PRN (16:15)
[2019-05-30] MEDS ORDERED: MAGNESIUM HYDROXIDE SUSPENSION 30 ML UDCUP PO PRN (16:15)
[2019-05-30] MEDS: THIAMINE HCL 100 MG TABLET PO SCH (16:59)
[2019-05-30] MEDS: LATANOPROST 0.005% 2.5 ML OPHTHALMIC SOLUTION OU SCH (20:39)
[2019-05-31] MEDS ORDERED: LEVOTHYROXINE SODIUM 100 MCG TABLET PO SCH (06:30)
[2019-05-31 08:10] VITALS: BP 121/70
[2019-05-31] MEDS: MULTIVITAMINS WITH MINERALS, THERAPEUTIC TABLET PO SCH (08:48)
[2019-05-31] MEDS: FluPHENAZine HCL 10 MG TABLET PO SCH ×3 (08:48→16:38)
[2019-05-31] MEDS: FOLIC ACID 1 MG TABLET PO SCH (08:48)
[2019-05-31] MEDS: THIAMINE HCL 100 MG TABLET PO SCH ×2 (08:49→16:38)
[2019-05-31] MEDS: ASPIRIN 81 MG CHEWABLE TABLET PO SCH (08:49)
[2019-05-31] MEDS: DOCUSATE SODIUM 250 MG CAPSULE PO SCH (08:49)
[2019-05-31] MEDS: LORazepam 2 MG TABLET PO PRN (16:02)
[2019-05-31 16:23] VITALS: BP 102/62
[2019-05-31] MEDS: LATANOPROST 0.005% 2.5 ML OPHTHALMIC SOLUTION OU SCH (20:39)
[2019-05-31 20:50] VITALS: BP 117/61
[2019-05-31] MEDS: CloNIDine HCL 0.1 MG TABLET PO SCH (20:51)
[2019-06-01] MEDS: LEVOTHYROXINE SODIUM 125 MCG TABLET PO SCH (06:39)
[2019-06-01 07:26] VITALS: BP 107/60
[2019-06-01 08:14] VITALS: BP 107/64
[2019-06-01] MEDS ORDERED: HYDROCORTISONE 2.5% 30 GM OINTMENT TP PRN (08:15)
[2019-06-01] MEDS: CETIRIZINE HCL 10 MG TABLET PO SCH ×2 (09:00→12:19)
[2019-06-01] MEDS: TIOTROPIUM BROMIDE 18 MCG/INH HANDIHALER [5] IH SCH ×2 (09:00→12:19)
[2019-06-01] MEDS: DOCUSATE SODIUM 250 MG CAPSULE PO SCH (09:00)
[2019-06-01] MEDS: FLUTICASONE PROPIONATE 50 MCG/SPRAY 16 GM NASAL SPRAY NASAL SCH ×2 (09:00→12:19)
[2019-06-01] MEDS ORDERED: FluPHENAZine DECANOATE 25 MG/ML IM SCH (09:00)
[2019-06-01] MEDS: FOLIC ACID 1 MG TABLET PO SCH (10:58)
[2019-06-01] MEDS: MULTIVITAMINS WITH MINERALS, THERAPEUTIC TABLET PO SCH (10:58)
[2019-06-01] MEDS: OMEGA-3/DHA/EPA/FISH OIL 1,000 MG CAPSULE PO SCH (10:58)
[2019-06-01] MEDS: FluPHENAZine HCL 10 MG TABLET PO SCH ×3 (10:58→16:41)
[2019-06-01] MEDS: ASPIRIN 81 MG CHEWABLE TABLET PO SCH (10:58)
[2019-06-01] MEDS: THIAMINE HCL 100 MG TABLET PO SCH ×2 (10:59→16:41)
[2019-06-01] MEDS: AMANTADINE HCL 100 MG CAPSULE PO SCH ×2 (10:59→16:41)
[2019-06-01 16:50] VITALS: BP 108/60
[2019-06-01 20:30] VITALS: BP 112/62
[2019-06-01] MEDS: CloNIDine HCL 0.1 MG TABLET PO SCH (20:31)
[2019-06-01] MEDS: LATANOPROST 0.005% 2.5 ML OPHTHALMIC SOLUTION OU SCH (20:32)
[2019-06-02] MEDS: LEVOTHYROXINE SODIUM 125 MCG TABLET PO SCH (05:53)
[2019-06-02 06:00] VITALS: BP 100/64
[2019-06-02] MEDS: CETIRIZINE HCL 10 MG TABLET PO SCH (08:29)
[2019-06-02] MEDS: FluPHENAZine HCL 10 MG TABLET PO SCH ×3 (08:29→16:37)
[2019-06-02] MEDS: OMEGA-3/DHA/EPA/FISH OIL 1,000 MG CAPSULE PO SCH (08:29)
[2019-06-02] MEDS: MULTIVITAMINS WITH MINERALS, THERAPEUTIC TABLET PO SCH (08:29)
[2019-06-02] MEDS: ASPIRIN 81 MG CHEWABLE TABLET PO SCH (08:29)
[2019-06-02] MEDS: DOCUSATE SODIUM 250 MG CAPSULE PO SCH ×2 (08:29→08:40)
[2019-06-02] MEDS: AMANTADINE HCL 100 MG CAPSULE PO SCH ×2 (08:29→16:37)
[2019-06-02] MEDS: FOLIC ACID 1 MG TABLET PO SCH (08:29)
[2019-06-02] MEDS: THIAMINE HCL 100 MG TABLET PO SCH ×2 (08:30→16:37)
[2019-06-02] MEDS: FLUTICASONE PROPIONATE 50 MCG/SPRAY 16 GM NASAL SPRAY NASAL SCH (08:31)
[2019-06-02] MEDS: TIOTROPIUM BROMIDE 18 MCG/INH HANDIHALER [5] IH SCH (08:33)
[2019-06-02 16:23] VITALS: BP 111/67
[2019-06-02] MEDS ORDERED: FLUD25I IM (16:59)
[2019-06-02] MEDS ORDERED: AMAN-6 PO (16:59)
[2019-06-02] MEDS ORDERED: OMEG-135 PO (16:59)
[2019-06-02] MEDS ORDERED: FLUP10 PO (16:59)
[2019-06-02 20:26] VITALS: BP 111/61
[2019-06-02] MEDS: CloNIDine HCL 0.1 MG TABLET PO SCH (20:28)
[2019-06-02] MEDS: LATANOPROST 0.005% 2.5 ML OPHTHALMIC SOLUTION OU SCH (20:29)
[2019-06-03] MEDS ORDERED: AMAN-6 PO (06:04)
[2019-06-03] MEDS ORDERED: FLUP10 PO (06:09)
[2019-06-03 06:20] VITALS: BP 110/68
[2019-06-03] MEDS: LEVOTHYROXINE SODIUM 125 MCG TABLET PO SCH (06:39)
[2019-06-03 08:08] VITALS: BP 116/62
[2019-06-03] MEDS: MULTIVITAMINS WITH MINERALS, THERAPEUTIC TABLET PO SCH (08:17)
[2019-06-03] MEDS: FluPHENAZine HCL 10 MG TABLET PO SCH ×2 (08:17→12:11)
[2019-06-03] MEDS: ASPIRIN 81 MG CHEWABLE TABLET PO SCH (08:17)
[2019-06-03] MEDS: CETIRIZINE HCL 10 MG TABLET PO SCH (08:17)
[2019-06-03] MEDS: AMANTADINE HCL 100 MG CAPSULE PO SCH (08:17)
[2019-06-03] MEDS: OMEGA-3/DHA/EPA/FISH OIL 1,000 MG CAPSULE PO SCH (08:17)
[2019-06-03] MEDS: FOLIC ACID 1 MG TABLET PO SCH (08:17)
[2019-06-03] MEDS: THIAMINE HCL 100 MG TABLET PO SCH (08:17)
[2019-06-03] MEDS: TIOTROPIUM BROMIDE 18 MCG/INH HANDIHALER [5] IH SCH (08:21)
[2019-06-03] MEDS: FLUTICASONE PROPIONATE 50 MCG/SPRAY 16 GM NASAL SPRAY NASAL SCH (08:21)
[2019-06-03] MEDS: DOCUSATE SODIUM 250 MG CAPSULE PO SCH (08:23)
[2019-06-03] MEDS ORDERED: LEVO125 PO (08:53)
[2019-06-03] MEDS ORDERED: FLUD25I IM (08:53)
[2019-06-03] MEDS ORDERED: OMEG-135 PO (08:53)
== END 2019-06-03 13:15 | disposition home or self-care (01) | DRG 885 ==
LOC: EMS 13:46 → B2X 05-28 03:00
PROVIDERS: ADMIT Psychiatry & Neurology Psychiatry; ATTEND Psychiatry & Neurology Psychiatry
DX: F20.0 Paranoid schizophrenia (principal); Z68.41 Body mass index [BMI] 40.0-44.9, adult; F72 Severe intellectual disabilities; E03.9 Hypothyroidism, unspecified; E11.9 Type 2 diabetes mellitus without complications; E66.9 Obesity, unspecified; E78.00 Pure hypercholesterolemia, unspecified; E78.1 Pure hyperglyceridemia; F17.200 Nicotine dependence, unspecified, uncomplicated; F31.9 Bipolar disorder, unspecified; G47.00 Insomnia, unspecified; Z91.81 History of falling; Z91.19 Patient's noncompliance with other medical treatment and regimen; K59.00 Constipation, unspecified; K21.9 Gastro-esophageal reflux disease without esophagitis; J44.9 Chronic obstructive pulmonary disease, unspecified; J30.9 Allergic rhinitis, unspecified; Z79.899 Other long term (current) drug therapy
CPT/HCPCS: 83036; 84443; 96372; G0480; G0481; J1200; J1630; J2060; J2680; J3230

== ENCOUNTER 2019-07-25 19:22 | Emergency (ER) | payer OTHER ==
[~2019-07-25] VITALS: Ht 167.6 cm; Wt 105.7 kg
[~2019-07-25 19:22] MED LIST changes: -ALBU8HFA IH; +AMAN-6 PO; -ARIP5TAB8 PO; -CHLO25 PO; -DIPH50 PO; -DONE10TA8 PO; +FLUD25I IM; +FLUP10 PO; -FLUP5 PO; +LEVO125 PO; -LEVO137T24 PO; -LOSA25TA2 PO; -MELO-107 PO; -NYST15PO3 TP; +OMEG-135 PO; -OXCA300T29 PO; -POLY90PO MC; -PROM5SYR2 PO; -QUET25TA PO; -QUET300T2 PO; -RANI150T7 PO; -RISP.5 PO; -[UNRECOGNIZED DRUG - CODE] PO
[2019-07-25 20:09] LABS: BASOPHILS % (AUTO) 0.7 % (0.0-2.0); EOSINOPHILS % (AUTO) 0.8 % (1.0-6.0); HEMATOCRIT 39.3 % (36-46); HEMOGLOBIN 12.7 g/dL (12.0-16.0); LYMPHOCYTES # (AUTO) 1.7 K/uL (1.0-4.8); LYMPHOCYTES % (AUTO) 22.3 % (22.0-44.0); MEAN CORPUSCULAR HEMOGLOBIN 29.5 pg (26.0-34.0); MEAN CORPUSCULAR HGB CONC 32.3 G/dL (31.0-37.0); MEAN CORPUSCULAR VOLUME 91 fL (80-100); MONOCYTES # (AUTO) 0.6 K/uL (0.1-1.0); MONOCYTES % (AUTO) 7.7 % (2.0-9.0); NEUTROPHILS # (AUTO) 5.2 K/uL (1.8-7.7); NEUTROPHILS % (AUTO) 68.5 % (40.0-70.0); PLATELET COUNT (AUTO) 273 K/uL (150-450); RED BLOOD CELL COUNT(AUTO) 4.31 MIL/uL (4.00-5.20); RED CELL DISTRIBUTION WIDTH 14.5 % (11.5-14.5)
[2019-07-25 20:41] LABS: ANION GAP 12 mmol/L (8-16); CALCIUM, TOTAL 9.4 mg/dL (8.8-10.5); CARBON DIOXIDE 29 mmol/L (22-29); CHLORIDE 102 mmol/L (98-107); CREATININE 0.98 mg/dL (0.60-1.30); GLOMERULAR FILTR. RATE CALC 58 mL/min (>60); GLUCOSE,RANDOM 122 mg/dL (70-110); POTASSIUM 3.5 mmol/L (3.5-5.1); SODIUM SERUM 143 mmol/L (136-145); UREA NITROGEN, BLOOD 14 mg/dL (7-18)
[2019-07-25 20:46] LABS: ALANINE AMINOTRANSFERASE 16 U/L (12-78); ALBUMIN 3.6 g/dL (3.4-5.0); ALKALINE PHOSPHATASE 71 U/L (46-116); ASPARTATE AMINOTRANSFERASE 14 U/L (15-37); BILIRUBIN,TOTAL 0.4 mg/dL (0.1-1.0)
[2019-07-25 22:00] VITALS: BP 115/60
== END 2019-07-26 00:28 | disposition home or self-care (01) ==
LOC: EMS 19:23
DX: F20.9 Schizophrenia, unspecified (principal); R73.9 Hyperglycemia, unspecified; R62.50 Unspecified lack of expected normal physiological development in childhood; F41.9 Anxiety disorder, unspecified; F31.9 Bipolar disorder, unspecified; J44.9 Chronic obstructive pulmonary disease, unspecified; K21.9 Gastro-esophageal reflux disease without esophagitis; E78.00 Pure hypercholesterolemia, unspecified; E03.9 Hypothyroidism, unspecified; Z87.891 Personal history of nicotine dependence; Z88.0 Allergy status to penicillin; Z79.82 Long term (current) use of aspirin
CPT/HCPCS: 36415; 80053; 85025; 99285; G0480

== ENCOUNTER 2020-06-24 16:45 | Inpatient (IN) | payer MEDICARE, MEDICAID ==
[~2020-06-24] VITALS: Ht 157.5 cm; Wt 117.6 kg
[~2020-06-24 16:45] MED LIST changes: +CETI-450 PO; -CETI10TA59 PO; -CLON-570 PO; +CLON0.1T83 PO; +FOLI-130 PO; -FOLI1 PO; -MULT-723 PO; +MULT-729 PO
[2020-06-25 12:14] VITALS: BP 157/84
[2020-06-25 16:01] VITALS: BP 160/87
[2020-06-25 17:00] VITALS: BP 160/87
[2020-06-25] MEDS ORDERED: PROMETHAZINE HCL 25 MG TABLET PO PRN (17:00)
[2020-06-25] MEDS ORDERED: ACETAMINOPHEN 325 MG TABLET PO PRN (17:00)
[2020-06-25] MEDS ORDERED: GuaiFENesin/D-METHORPHAN [SUGAR-FREE] 200-20MG/10 ML SYRUP UDCUP PO PRN (17:00)
[2020-06-25] MEDS ORDERED: MAG HYDROX/AL HYDROX/SIMETH ES 30 ML SUSPENSION UDCUP PO PRN (17:00)
[2020-06-25] MEDS ORDERED: OLANZapine 5 MG RAPDIS TABLET PO PRN (17:00)
[2020-06-25] MEDS ORDERED: LORazepam 2 MG TABLET PO PRN (17:00)
[2020-06-25] MEDS ORDERED: LOPERAMIDE HCL 2 MG CAPSULE PO PRN (17:00)
[2020-06-25] MEDS ORDERED: HydrOXYzine PAMOATE 50 MG CAPSULE PO PRN (17:00)
[2020-06-25] MEDS ORDERED: MAGNESIUM HYDROXIDE SUSPENSION 30 ML UDCUP PO PRN (17:00)
[2020-06-25] MEDS: THIAMINE 100 MG TABLET PO SCH (17:05)
[2020-06-25] MEDS ORDERED: -PHARMACY VACCINE NOTE- MISC ONE (17:30)
[2020-06-25 20:30] VITALS: BP 151/76
[2020-06-25] MEDS: ZOLPIDEM TARTRATE 10 MG TABLET PO PRN (20:34)
[2020-06-25] MEDS: DIVALPROEX SODIUM 500 MG ER TABLET PO SCH (20:34)
[2020-06-26] MEDS ORDERED: LORazepam 0.5 MG TABLET PO PRN (01:00)
[2020-06-26] MEDS: LEVOTHYROXINE SODIUM 125 MCG TABLET PO SCH (07:01)
[2020-06-26 08:09] VITALS: BP 129/84
[2020-06-26] MEDS ORDERED: FOLIC ACID 1 MG TABLET PO SCH (09:00)
[2020-06-26] MEDS ORDERED: DULoxetine HCL 20 MG CAPSULE PO SCH (09:00)
[2020-06-26] MEDS ORDERED: OMEGA-3/DHA/EPA/FISH OIL 1,000 MG CAPSULE PO SCH (09:00)
[2020-06-26] MEDS: ASPIRIN 81 MG CHEWABLE TABLET PO SCH (09:52)
[2020-06-26] MEDS: MULTIVITAMINS WITH MINERALS, THERAPEUTIC TABLET PO SCH (09:52)
[2020-06-26] MEDS: FOLIC ACID 1 MG TABLET PO SCH (09:53)
[2020-06-26] MEDS: OMEGA-3/DHA/EPA/FISH OIL 1,000 MG CAPSULE PO SCH (09:53)
[2020-06-26] MEDS: THIAMINE 100 MG TABLET PO SCH ×2 (09:53→16:56)
[2020-06-26] MEDS: METOPROLOL TARTRATE 25 MG TABLET PO SCH ×2 (09:53→16:56)
[2020-06-26] MEDS: CETIRIZINE HCL 10 MG TABLET PO SCH (09:54)
[2020-06-26] MEDS: TIOTROPIUM BROMIDE 18 MCG/INH HANDIHALER [5] IH SCH (09:54)
[2020-06-26] MEDS: FLUTICASONE PROPIONATE 50 MCG/SPRAY 16 GM NASAL SPRAY NASAL SCH (09:54)
[2020-06-26] MEDS: DOCUSATE SODIUM 250 MG CAPSULE PO SCH (09:57)
[2020-06-26 16:03] VITALS: BP 135/77
[2020-06-26] MEDS ORDERED: ALBUTEROL SULFATE HFA 90 MCG/PUFF 8 GM INHALER IH PRN (20:30)
[2020-06-26] MEDS: DIVALPROEX SODIUM 500 MG ER TABLET PO SCH (20:41)
[2020-06-26] MEDS: LATANOPROST 0.005% 2.5 ML OPHTHALMIC SOLUTION OU SCH (20:43)
[2020-06-26] MEDS: ZOLPIDEM TARTRATE 10 MG TABLET PO PRN (20:48)
[2020-06-27] MEDS: LEVOTHYROXINE SODIUM 125 MCG TABLET PO SCH (07:01)
[2020-06-27 08:08] VITALS: BP 131/56
[2020-06-27] MEDS: ASPIRIN 81 MG CHEWABLE TABLET PO SCH (10:18)
[2020-06-27] MEDS: CETIRIZINE HCL 10 MG TABLET PO SCH (10:18)
[2020-06-27] MEDS: TIOTROPIUM BROMIDE 18 MCG/INH HANDIHALER [5] IH SCH (10:18)
[2020-06-27] MEDS: METOPROLOL TARTRATE 25 MG TABLET PO SCH ×2 (10:18→16:20)
[2020-06-27] MEDS: FLUTICASONE PROPIONATE 50 MCG/SPRAY 16 GM NASAL SPRAY NASAL SCH (10:18)
[2020-06-27] MEDS: THIAMINE 100 MG TABLET PO SCH ×2 (10:18→16:19)
[2020-06-27] MEDS: MULTIVITAMINS WITH MINERALS, THERAPEUTIC TABLET PO SCH (10:18)
[2020-06-27] MEDS: OMEGA-3/DHA/EPA/FISH OIL 1,000 MG CAPSULE PO SCH (10:19)
[2020-06-27] MEDS: FOLIC ACID 1 MG TABLET PO SCH (10:19)
[2020-06-27] MEDS: DULoxetine HCL 30 MG CAPSULE PO SCH (10:19)
[2020-06-27] MEDS: DOCUSATE SODIUM 250 MG CAPSULE PO SCH (10:20)
[2020-06-27 16:07] VITALS: BP 126/77
[2020-06-27] MEDS: DIVALPROEX SODIUM 500 MG ER TABLET PO SCH (20:39)
[2020-06-27] MEDS: LATANOPROST 0.005% 2.5 ML OPHTHALMIC SOLUTION OU SCH (20:39)
[2020-06-27] MEDS: ZOLPIDEM TARTRATE 10 MG TABLET PO PRN (20:45)
[2020-06-28] MEDS: LEVOTHYROXINE SODIUM 125 MCG TABLET PO SCH (06:38)
[2020-06-28 08:37] VITALS: BP 135/62
[2020-06-28] MEDS: CETIRIZINE HCL 10 MG TABLET PO SCH (08:53)
[2020-06-28] MEDS: OMEGA-3/DHA/EPA/FISH OIL 1,000 MG CAPSULE PO SCH (08:53)
[2020-06-28] MEDS: THIAMINE 100 MG TABLET PO SCH ×2 (08:53→16:52)
[2020-06-28] MEDS: MULTIVITAMINS WITH MINERALS, THERAPEUTIC TABLET PO SCH (08:53)
[2020-06-28] MEDS: DULoxetine HCL 30 MG CAPSULE PO SCH (08:53)
[2020-06-28] MEDS: DOCUSATE SODIUM 250 MG CAPSULE PO SCH (08:54)
[2020-06-28] MEDS: FOLIC ACID 1 MG TABLET PO SCH (08:54)
[2020-06-28] MEDS: METOPROLOL TARTRATE 25 MG TABLET PO SCH ×2 (08:54→16:52)
[2020-06-28] MEDS: ASPIRIN 81 MG CHEWABLE TABLET PO SCH (08:54)
[2020-06-28] MEDS: FLUTICASONE PROPIONATE 50 MCG/SPRAY 16 GM NASAL SPRAY NASAL SCH (08:55)
[2020-06-28] MEDS: TIOTROPIUM BROMIDE 18 MCG/INH HANDIHALER [5] IH SCH (08:55)
[2020-06-28 16:41] VITALS: BP 143/77
[2020-06-28] MEDS: DIVALPROEX SODIUM 500 MG ER TABLET PO SCH (20:25)
[2020-06-28] MEDS: LATANOPROST 0.005% 2.5 ML OPHTHALMIC SOLUTION OU SCH (20:25)
[2020-06-28] MEDS: ZOLPIDEM TARTRATE 10 MG TABLET PO PRN (20:26)
[2020-06-29] MEDS: LEVOTHYROXINE SODIUM 125 MCG TABLET PO SCH (06:10)
[2020-06-29 08:32] VITALS: BP 128/65
[2020-06-29] MEDS: DULoxetine HCL 30 MG CAPSULE PO SCH (09:47)
[2020-06-29] MEDS: FLUTICASONE PROPIONATE 50 MCG/SPRAY 16 GM NASAL SPRAY NASAL SCH (09:47)
[2020-06-29] MEDS: OMEGA-3/DHA/EPA/FISH OIL 1,000 MG CAPSULE PO SCH (09:47)
[2020-06-29] MEDS: ASPIRIN 81 MG CHEWABLE TABLET PO SCH (09:47)
[2020-06-29] MEDS: MULTIVITAMINS WITH MINERALS, THERAPEUTIC TABLET PO SCH (09:47)
[2020-06-29] MEDS: THIAMINE 100 MG TABLET PO SCH ×2 (09:47→17:25)
[2020-06-29] MEDS: TIOTROPIUM BROMIDE 18 MCG/INH HANDIHALER [5] IH SCH (09:47)
[2020-06-29] MEDS: CETIRIZINE HCL 10 MG TABLET PO SCH (09:47)
[2020-06-29] MEDS: FOLIC ACID 1 MG TABLET PO SCH (09:47)
[2020-06-29] MEDS: METOPROLOL TARTRATE 25 MG TABLET PO SCH ×2 (09:48→17:25)
[2020-06-29] MEDS: DOCUSATE SODIUM 250 MG CAPSULE PO SCH (09:50)
[2020-06-29 17:41] VITALS: BP 152/65
[2020-06-29] MEDS: DIVALPROEX SODIUM 500 MG ER TABLET PO SCH (20:19)
[2020-06-29] MEDS: LATANOPROST 0.005% 2.5 ML OPHTHALMIC SOLUTION OU SCH (20:20)
[2020-06-29] MEDS: ZOLPIDEM TARTRATE 10 MG TABLET PO PRN (20:25)
[2020-06-30] MEDS: LEVOTHYROXINE SODIUM 125 MCG TABLET PO SCH (06:18)
[2020-06-30 08:27] VITALS: BP 142/65
[2020-06-30] MEDS: THIAMINE 100 MG TABLET PO SCH ×2 (10:53→16:57)
[2020-06-30] MEDS: FOLIC ACID 1 MG TABLET PO SCH (10:53)
[2020-06-30] MEDS: METOPROLOL TARTRATE 25 MG TABLET PO SCH ×2 (10:53→16:57)
[2020-06-30] MEDS: MULTIVITAMINS WITH MINERALS, THERAPEUTIC TABLET PO SCH (10:53)
[2020-06-30] MEDS: CETIRIZINE HCL 10 MG TABLET PO SCH (10:53)
[2020-06-30] MEDS: DULoxetine HCL 30 MG CAPSULE PO SCH (10:54)
[2020-06-30] MEDS: OMEGA-3/DHA/EPA/FISH OIL 1,000 MG CAPSULE PO SCH (10:54)
[2020-06-30] MEDS: ASPIRIN 81 MG CHEWABLE TABLET PO SCH (10:54)
[2020-06-30] MEDS: DOCUSATE SODIUM 250 MG CAPSULE PO SCH (10:54)
[2020-06-30] MEDS: FLUTICASONE PROPIONATE 50 MCG/SPRAY 16 GM NASAL SPRAY NASAL SCH (10:55)
[2020-06-30] MEDS: TIOTROPIUM BROMIDE 18 MCG/INH HANDIHALER [5] IH SCH (10:55)
[2020-06-30 16:07] VITALS: BP 138/71
[2020-06-30] MEDS: LATANOPROST 0.005% 2.5 ML OPHTHALMIC SOLUTION OU SCH (20:43)
[2020-06-30] MEDS: DIVALPROEX SODIUM 500 MG ER TABLET PO SCH (20:44)
[2020-06-30] MEDS: ZOLPIDEM TARTRATE 10 MG TABLET PO PRN (22:38)
[2020-07-01] MEDS: LEVOTHYROXINE SODIUM 125 MCG TABLET PO SCH (06:57)
[2020-07-01 10:22] VITALS: BP 130/66
[2020-07-01] MEDS: THIAMINE 100 MG TABLET PO SCH ×2 (10:56→17:45)
[2020-07-01] MEDS: ASPIRIN 81 MG CHEWABLE TABLET PO SCH (10:56)
[2020-07-01] MEDS: METOPROLOL TARTRATE 25 MG TABLET PO SCH ×2 (10:56→17:00)
[2020-07-01] MEDS: CETIRIZINE HCL 10 MG TABLET PO SCH (10:57)
[2020-07-01] MEDS: FOLIC ACID 1 MG TABLET PO SCH (10:57)
[2020-07-01] MEDS: DULoxetine HCL 30 MG CAPSULE PO SCH (10:57)
[2020-07-01] MEDS: TIOTROPIUM BROMIDE 18 MCG/INH HANDIHALER [5] IH SCH (10:57)
[2020-07-01] MEDS: FLUTICASONE PROPIONATE 50 MCG/SPRAY 16 GM NASAL SPRAY NASAL SCH (10:57)
[2020-07-01] MEDS: MULTIVITAMINS WITH MINERALS, THERAPEUTIC TABLET PO SCH (10:57)
[2020-07-01] MEDS: DOCUSATE SODIUM 250 MG CAPSULE PO SCH (10:58)
[2020-07-01] MEDS: OMEGA-3/DHA/EPA/FISH OIL 1,000 MG CAPSULE PO SCH (10:58)
[2020-07-01 17:43] VITALS: BP 105/48
[2020-07-01] MEDS: LATANOPROST 0.005% 2.5 ML OPHTHALMIC SOLUTION OU SCH (21:06)
[2020-07-01] MEDS: DIVALPROEX SODIUM 500 MG ER TABLET PO SCH (21:06)
[2020-07-01] MEDS: ZOLPIDEM TARTRATE 10 MG TABLET PO PRN (21:07)
[2020-07-02] MEDS: LEVOTHYROXINE SODIUM 125 MCG TABLET PO SCH (06:26)
[2020-07-02] MEDS: DOCUSATE SODIUM 250 MG CAPSULE PO SCH (09:00)
[2020-07-02 09:20] VITALS: BP 142/72
[2020-07-02] MEDS: MULTIVITAMINS WITH MINERALS, THERAPEUTIC TABLET PO SCH (10:06)
[2020-07-02] MEDS: DULoxetine HCL 30 MG CAPSULE PO SCH (10:06)
[2020-07-02] MEDS: METOPROLOL TARTRATE 25 MG TABLET PO SCH ×2 (10:06→16:46)
[2020-07-02] MEDS: FOLIC ACID 1 MG TABLET PO SCH (10:06)
[2020-07-02] MEDS: THIAMINE 100 MG TABLET PO SCH ×2 (10:06→16:46)
[2020-07-02] MEDS: OMEGA-3/DHA/EPA/FISH OIL 1,000 MG CAPSULE PO SCH (10:06)
[2020-07-02] MEDS: CETIRIZINE HCL 10 MG TABLET PO SCH (10:07)
[2020-07-02] MEDS: ASPIRIN 81 MG CHEWABLE TABLET PO SCH (10:07)
[2020-07-02] MEDS: FLUTICASONE PROPIONATE 50 MCG/SPRAY 16 GM NASAL SPRAY NASAL SCH (10:08)
[2020-07-02] MEDS: TIOTROPIUM BROMIDE 18 MCG/INH HANDIHALER [5] IH SCH (12:31)
[2020-07-02 16:06] VITALS: BP 141/61
[2020-07-02] MEDS: LATANOPROST 0.005% 2.5 ML OPHTHALMIC SOLUTION OU SCH (20:45)
[2020-07-02] MEDS: DIVALPROEX SODIUM 500 MG ER TABLET PO SCH (20:45)
[2020-07-02] MEDS: ZOLPIDEM TARTRATE 10 MG TABLET PO PRN (20:50)
[2020-07-03] MEDS: LEVOTHYROXINE SODIUM 125 MCG TABLET PO SCH (07:00)
[2020-07-03] MEDS: DOCUSATE SODIUM 250 MG CAPSULE PO SCH (09:00)
[2020-07-03 10:02] VITALS: BP 110/68
[2020-07-03] MEDS: TIOTROPIUM BROMIDE 18 MCG/INH HANDIHALER [5] IH SCH (10:38)
[2020-07-03] MEDS: CETIRIZINE HCL 10 MG TABLET PO SCH (10:38)
[2020-07-03] MEDS: METOPROLOL TARTRATE 25 MG TABLET PO SCH ×2 (10:44→17:13)
[2020-07-03] MEDS: MULTIVITAMINS WITH MINERALS, THERAPEUTIC TABLET PO SCH (10:44)
[2020-07-03] MEDS: THIAMINE 100 MG TABLET PO SCH ×2 (10:44→17:13)
[2020-07-03] MEDS: DULoxetine HCL 30 MG CAPSULE PO SCH (10:44)
[2020-07-03] MEDS: FOLIC ACID 1 MG TABLET PO SCH (10:44)
[2020-07-03] MEDS: ASPIRIN 81 MG CHEWABLE TABLET PO SCH (10:45)
[2020-07-03] MEDS: FLUTICASONE PROPIONATE 50 MCG/SPRAY 16 GM NASAL SPRAY NASAL SCH (10:46)
[2020-07-03] MEDS: OMEGA-3/DHA/EPA/FISH OIL 1,000 MG CAPSULE PO SCH (10:47)
[2020-07-03 16:28] VITALS: BP 149/80
[2020-07-03] MEDS ORDERED: ZOLPIDEM TARTRATE 10 MG TABLET PO SCH (21:00)
[2020-07-03] MEDS: LATANOPROST 0.005% 2.5 ML OPHTHALMIC SOLUTION OU SCH (21:13)
[2020-07-03] MEDS: DIVALPROEX SODIUM 500 MG ER TABLET PO SCH (21:13)
[2020-07-04] MEDS: LEVOTHYROXINE SODIUM 125 MCG TABLET PO SCH (06:35)
[2020-07-04 08:31] VITALS: BP 134/55
[2020-07-04] MEDS: DOCUSATE SODIUM 250 MG CAPSULE PO SCH (09:00)
[2020-07-04] MEDS ORDERED: FluPHENAZine DECANOATE 25 MG/ML IM SCH (09:00)
[2020-07-04] MEDS: MULTIVITAMINS WITH MINERALS, THERAPEUTIC TABLET PO SCH (10:31)
[2020-07-04] MEDS: ASPIRIN 81 MG CHEWABLE TABLET PO SCH (10:31)
[2020-07-04] MEDS: OMEGA-3/DHA/EPA/FISH OIL 1,000 MG CAPSULE PO SCH (10:31)
[2020-07-04] MEDS: DULoxetine HCL 30 MG CAPSULE PO SCH (10:31)
[2020-07-04] MEDS: FOLIC ACID 1 MG TABLET PO SCH (10:31)
[2020-07-04] MEDS: THIAMINE 100 MG TABLET PO SCH (10:32)
[2020-07-04] MEDS: FLUTICASONE PROPIONATE 50 MCG/SPRAY 16 GM NASAL SPRAY NASAL SCH (10:32)
[2020-07-04] MEDS: METOPROLOL TARTRATE 25 MG TABLET PO SCH (10:32)
[2020-07-04] MEDS: CETIRIZINE HCL 10 MG TABLET PO SCH (10:32)
[2020-07-04] MEDS: TIOTROPIUM BROMIDE 18 MCG/INH HANDIHALER [5] IH SCH (10:34)
[2020-07-04] MEDS ORDERED: OMEG-135 PO (11:11)
[2020-07-04] MEDS ORDERED: FLUD25I IM (11:11)
[2020-07-04] MEDS ORDERED: DIVA-80 PO (11:11)
[2020-07-04] MEDS ORDERED: DULO30CA96 PO (11:11)
[2020-07-04] MEDS ORDERED: METO25 PO (13:34)
[2020-07-04 16:49] VITALS: BP 140/69
== END 2020-07-04 17:00 | disposition home or self-care (01) | DRG 885 ==
LOC: 3EI 06-25 12:00
PROVIDERS: ADMIT Psychiatry & Neurology Psychiatry; ATTEND Psychiatry & Neurology Psychiatry
DX: F20.0 Paranoid schizophrenia (principal); F79 Unspecified intellectual disabilities; R45.851 Suicidal ideations; Z68.42 Body mass index [BMI] 45.0-49.9, adult; E03.9 Hypothyroidism, unspecified; E78.5 Hyperlipidemia, unspecified; I48.0 Paroxysmal atrial fibrillation; E11.9 Type 2 diabetes mellitus without complications; E66.9 Obesity, unspecified; K21.9 Gastro-esophageal reflux disease without esophagitis; F32.9 Major depressive disorder, single episode, unspecified; J30.9 Allergic rhinitis, unspecified; J44.9 Chronic obstructive pulmonary disease, unspecified; R32 Unspecified urinary incontinence; K59.00 Constipation, unspecified; Z62.810 Personal history of physical and sexual abuse in childhood; Z79.899 Other long term (current) drug therapy; Z91.19 Patient's noncompliance with other medical treatment and regimen; Z98.49 Cataract extraction status, unspecified eye; Z88.0 Allergy status to penicillin; Z88.1 Allergy status to other antibiotic agents
CPT/HCPCS: 87081; 93005; J2680